=== PATIENT | female | born 1975 | race Caucasian/White ===

== ENCOUNTER 2022-11-13 20:54 | Inpatient (IN) | payer MEDICAID, OTHER ==
[2022-11-13] MEDS ORDERED: NICOTINE 21MG/24HR PATCH TRANSDERM STA (21:17)
--- NOTE | 2022-11-13 21:18 | ED ---
Psych HPI - General Chief Complaint: Psychiatric Symptoms Stated Complaint: Mental Health Time Seen by Provider: 11/13/22 20:57 Source: patient, RN notes reviewed Mode of arrival: ambulatory Limitations: no limitations - History of Present Illness Initial Comments: 47-year-old female presents emergency Department chief complaint of depression, suicidal ideation. Patient states that she's been having worsening thoughts. Patient states that she does not currently see psychiatry. Patient denies any current medications denies illicit drug use no alcohol abuse. Patient denies any nausea, vomiting diarrhea constipation patient currently homeless. Patient denies any other associated complaints. - Related Data Allergies Allergy/AdvReac Type Severity Reaction Status Date / Time No Known Allergies Allergy Verified 11/13/22 21:01 Review of Systems ROS Statement: Those systems with pertinent positive or pertinent negative responses have been documented in the HPI. ROS Other: All systems not noted in ROS Statement are negative. Past Medical History Past Medical History: No Reported History History of Any Multi-Drug Resistant Organisms: None Reported Past Surgical History: No Surgical Hx Reported Past Psychological History: No Psychological Hx Reported Smoking Status: Current every day smoker Past Alcohol Use History: Rare Past Drug Use History: Marijuana - Past Family History family Additional Family Medical History / Comment(s): denies CAD General Exam Limitations: no limitations General appearance: alert, in no apparent distress Head exam: Present: atraumatic, normocephalic, normal inspection Eye exam: Present: normal appearance, PERRL, EOMI. Absent: scleral icterus, conjunctival injection, periorbital swelling ENT exam: Present: normal exam, normal oropharynx, mucous membranes moist Neck exam: Present: normal inspection, full ROM. Absent: tenderness, meningismus, lymphadenopathy Respiratory exam: Present: normal lung sounds bilaterally. Absent: respiratory distress, wheezes, rales, rhonchi, stridor Cardiovascular Exam: Present: regular rate, normal rhythm, normal heart sounds. Absent: systolic murmur, diastolic murmur, rubs, gallop, clicks Neurological exam: Present: alert, oriented X3, CN II-XII intact Psychiatric exam: Present: depressed Skin exam: Present: warm, dry, intact, normal color. Absent: rash Course Vital Signs 11/13/22 11/13/22 11/14/22 20:57 22:01 02:00 Temperature 98.1 F Pulse Rate 111 H Respiratory 18 16 16 Rate Blood Pressure 138/95 O2 Sat by Pulse 97 Oximetry 11/14/22 04:46 Temperature Pulse Rate Respiratory 16 Rate Blood Pressure O2 Sat by Pulse Oximetry Medical Decision Making - Lab Data Lab Results 11/13/22 11/14/22 Range/Units 21: 02:18 Urine Opiates Screen Not Detected (NotDetected) Ur Oxycodone Screen Not Detected (NotDetected) Urine Methadone Screen Not Detected (NotDetected) Ur Propoxyphene Screen Not Detected (NotDetected) Ur Barbiturates Screen Not Detected (NotDetected) U Tricyclic Antidepress Not Detected (NotDetected) Ur Phencyclidine Scrn Not Detected (NotDetected) Ur Amphetamines Screen Not Detected (NotDetected) U Methamphetamines Scrn Not Detected (NotDetected) U Benzodiazepines Scrn Not Detected (NotDetected) Urine Cocaine Screen Not Detected (NotDetected) U Marijuana (THC) Screen Not Detected (NotDetected) Coronavirus (PCR) Not Detected (Not Detectd) Disposition Clinical Impression: Depression Disposition: ADMITTED IP TO THIS HOSP
[2022-11-13 22:47] LABS: Amphetamine Screen,Urine Not Detected (NotDetected); Barbiturate Screen,Urine Not Detected (NotDetected); Benzodiazepines Screen,Urine Not Detected (NotDetected); Cocaine Screen,Urine Not Detected (NotDetected); Methadone Screen, Urine Not Detected (NotDetected); Opiate Screen,Urine Not Detected (NotDetected); Phencyclidine Screen,Urine Not Detected (NotDetected); Tricyclic Antidepressant,Urine Not Detected (NotDetected); Urn Cannabinoid Scrn Not Detected (NotDetected)
[2022-11-13 22:48] LABS: Oxycodone Screen, Urine Not Detected (NotDetected)
[2022-11-14] MEDS ORDERED: MAGNESIUM HYDROXIDE 2,400 MG/10 ML CUP PO PRN (04:28)
[2022-11-14] MEDS ORDERED: MAG HYDROX/AL HYDROX/SIMETH 30 ML CUP PO PRN (04:28)
[2022-11-14] MEDS ORDERED: LORazepam 2 MG/ML INJ IM PRN (04:30)
[2022-11-14] MEDS ORDERED: LORazepam 1 MG TAB PO PRN (04:30)
[2022-11-14] MEDS ORDERED: HALOPERIDOL LACTATE 5 MG/ML 1 ML VIAL IM PRN (04:32)
[2022-11-14] MEDS ORDERED: traZODone HCL 50 MG TAB PO PRN (04:34)
[2022-11-14] MEDS ORDERED: haloperidoL 5 MG TAB PO PRN (04:43)
[2022-11-14] MEDS: NICOTINE 14MG/24HR PATCH TRANSDERM SCH ×2 (09:36→17:52)
[2022-11-14] MEDS: OLANZapine 5 MG TAB PO SCH ×4 (09:37→20:17)
[2022-11-14] MEDS: IBUPROFEN 400 MG TAB PO SCH ×3 (09:37→20:16)
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
--- NOTE | 2022-11-15 02:17 | P.PN ---
Progress Note - Text Progress Note Date: 11/14/22 patient could not be evaluated at this time due to being uncooperative
[2022-11-15] MEDS: IBUPROFEN 400 MG TAB PO SCH ×3 (09:09→19:48)
[2022-11-15] MEDS: NICOTINE 14MG/24HR PATCH TRANSDERM SCH (09:10)
[2022-11-15] MEDS: OLANZapine 5 MG TAB PO SCH ×3 (09:12→19:47)
[2022-11-15] MEDS: ACETAMINOPHEN TAB 325 MG TAB PO PRN ×3 (09:13→22:28)
--- NOTE | 2022-11-15 10:22 | PN ---
PROGRESS NOTE DATE OF SERVICE: 11/15/2022 CHIEF COMPLAINT: The patient stated that she was looking for a doctor, who would give her medications to put her to sleep where she would not wake up. INTERVAL HISTORY: The patient has been very oppositional to most things going on the unit yesterday. She was out on the unit. She was quite persistent and demands that she be discharged. Most of the time when she interacts with staff, she presents in a very distressed manner. It is noted that I have started Zyprexa and ordered 5 mg 3 times a day. The indication for Zyprexa is for physiologic stress response relating to her acute level of anxiety. When called to receive the medicine, she declined to take it. She stated yesterday the following to Nursing, "I am not going to start medications when I can't maintain them. I am sure you never have been at a place where you want to , but that is what I want. I wish I have never came here. I which I had a gun to kill myself." The patient apparently slept fair last night. Today, she has been up and continues the same. She says she has significant pain complaints. She was demanding that she receive her [id number] medicine that she had picked up at [employer]. She said that what she got at [employer] was "ibuprofen 200 mg per day." We did check the bottle that she brought in, which confirmed that. I discussed with the patient that we currently have her on ibuprofen 400 mg 3 times a day. She was very insistent on the idea that this medicine was not appropriate for her, but the medicine she brought in would be better. She was in a very high state of stress. I encouraged her to consider taking Zyprexa, which could help relax her and also reduce some of her pain. She continues to decline taking any psychotropic medications, and her only response is that she needs to be discharged. MENTAL STATUS EXAM: The patient was quite restless. She did not respond directly to most questions. Mostly, she was in an intense state demanding that she needed her medications that she brought in to help with pain. She said other than that she needs to be discharged, she had an intense manner. Her mood was depressed. She was significantly distressed. It was difficult to assess for thought disorder. She has continued to make references about the idea that she believes she needs to end her life and that she needs to do this urgently. She appears to be oriented to circumstances and surrounding. ASSESSMENT: I will continue the current diagnosis and treatment plan. We will initiate a petition for involuntary hospitalization based on her persistent threats to kill herself. She is not able to cooperate with any aspects of care. I continued to encourage her to consider taking Zyprexa at least while she is on the unit to see if she sees any benefit from that, though she declines. I will continue the order in place. I had made an effort yesterday to discuss with her what the process is that she was if she is a petition for involuntary hospitalization. The patient was not able to engage much in a conversation. I did not discuss it with her today as it only seems to add a fuel to her fire. We will focus on stabilization and discharge planning. OKSANA / TERI: [id number] /
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
[2022-11-16] MEDS: CLOTRIMAZOLE 1% CREAM 30 GM TUBE TOPICAL SCH ×2 (02:29→08:09)
[2022-11-16 06:36] VITALS: BP 145/84; PULSE 67; RESP 17; TEMP 98.7
[2022-11-16] MEDS: NICOTINE 14MG/24HR PATCH TRANSDERM SCH (08:09)
[2022-11-16] MEDS: IBUPROFEN 400 MG TAB PO SCH (08:10)
[2022-11-16] MEDS: OLANZapine 5 MG TAB PO SCH (08:10)
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
== END 2022-11-16 12:43 | disposition home or self-care (01) | DRG 881 ==
LOC: EC 20:54 → 3MHU 11-14 04:18
PROVIDERS: ADMIT Psychiatry & Neurology Psychiatry; ATTEND Psychiatry & Neurology Psychiatry
DX: F43.21 Adjustment disorder with depressed mood (principal); R45.851 Suicidal ideations; F17.200 Nicotine dependence, unspecified, uncomplicated; F41.9 Anxiety disorder, unspecified; Z59.02 Unsheltered homelessness
CPT/HCPCS: 80306; 82075; 87635; 99285

== ENCOUNTER 2022-11-17 04:31 | Inpatient (IN) | payer MEDICAID, OTHER ==
[2022-11-17] MEDS ORDERED: MAG HYDROX/AL HYDROX/SIMETH 30 ML CUP PO PRN (11:08)
[2022-11-17] MEDS ORDERED: haloperidoL 5 MG TAB PO PRN (11:12)
[2022-11-17] MEDS ORDERED: HALOPERIDOL LACTATE 5 MG/ML 1 ML VIAL IM PRN (11:13)
[2022-11-17] MEDS ORDERED: LORazepam 1 MG TAB PO PRN (11:13)
[2022-11-17] MEDS ORDERED: LORazepam 2 MG/ML INJ IM PRN (11:14)
--- NOTE | 2022-11-17 12:36 | ED ---
Psych HPI <Олег López - Last Filed: 11/17/22 12:52> - General Source: patient, police, RN notes reviewed Mode of arrival: ambulatory - History of Present Illness MD Complaint: suicidal ideation, feels depressed History of same: Yes If Self Harm: admits thoughts of self harm <Josselyn Gnozales - Last Filed: 11/17/22 16:25> - General Chief Complaint: Psychiatric Symptoms Stated Complaint: PETITION Time Seen by Provider: 11/17/22 05:59 - History of Present Illness Initial Comments: This is a 47-year-old female who presents to the emergency department for psychiatric evaluation. Patient was admitted to the psychiatric unit here on 11/14 through 11/16 (discharged yesterday). She was denoting suicidal thoughts on initial evaluation, which subsequently lead to that admission. She refused to take psychiatric medication on the unit, and told the psychiatrist before discharge yesterday that she had lied about suicidal ideations because she wanted to get out of the cold. The patient was brought in by police after being found walking through traffic. On discussion with the patient this morning, she states that she lied about feeling ready to go home because she wanted to leave here so she could end her life. Her plan was to jump out in front of a truck. She feels like people aren't treating her very nicely, which puts her in a very poor mental state, making her want to end her life. Denies any homicidal ideations or auditory/visual hallucinations. Denies any fevers, chills, sore throat, cough, dyspnea, chest pain, palpitations, abdominal pain, nausea, vomiting, diarrhea, back pain, or headaches. (Josselyn Gonzales) - Related Data Previous Rx's Medication Instructions Recorded Clotrimazole Cream [Lotrimin Cream] 1 applic TOPICAL BID #1 each 11/16/22 Ibuprofen [Motrin] 400 mg PO TID tab 11/16/22 Nicotine 14Mg/24Hr Patch [Habitrol] 1 patch TRANSDERM DAILY 14 Days 11/16/22 patch Allergies Allergy/AdvReac Type Severity Reaction Status Date / Time No Known Allergies Allergy Verified 11/17/22 14:14 Review of Systems ROS Other: All systems not noted in ROS Statement are negative. <Олег López - Last Filed: 11/17/22 12:52> ROS Other: All systems not noted in ROS Statement are negative. <Josselyn Gonzales - Last Filed: 11/17/22 16:25> ROS Statement: Those systems with pertinent positive or pertinent negative responses have been documented in the HPI. Past Medical History Past Medical History: No Reported History History of Any Multi-Drug Resistant Organisms: None Reported Past Surgical History: No Surgical Hx Reported Past Psychological History: No Psychological Hx Reported Smoking Status: Current every day smoker Past Alcohol Use History: Rare Past Drug Use History: Marijuana - Past Family History family Additional Family Medical History / Comment(s): denies CAD <Josselyn Gonzales - Last Filed: 11/17/22 16:25> General Exam General appearance: alert Head exam: Present: atraumatic, normocephalic, normal inspection Respiratory exam: Present: normal lung sounds bilaterally. Absent: respiratory distress, wheezes, rales, rhonchi, stridor Cardiovascular Exam: Present: regular rate, normal rhythm, normal heart sounds. Absent: systolic murmur, diastolic murmur, rubs, gallop, clicks Neurological exam: Present: alert, oriented X3, CN II-XII intact Psychiatric exam: Present: flat affect, suicidal ideation. Absent: homicidal ideation <Josselyn Gonzales - Last Filed: 11/17/22 16:25> Course Vital Signs 11/17/22 11/17/22 11/17/22 04:34 09:00 11:08 Temperature 97.5 F L 98.0 F 97.9 F Pulse Rate 88 69 Pulse Rate [ 88 Right Sitting] Respiratory 16 18 16 Rate Blood Pressure 156/98 134/77 Blood Pressure 144/89 [Right Arm Sitting] O2 Sat by Pulse 97 95 97 Oximetry 11/17/22 13:00 Temperature Pulse Rate 78 Pulse Rate [ Right Sitting] Respiratory 18 Rate Blood Pressure 130/76 Blood Pressure [Right Arm Sitting] O2 Sat by Pulse 97 Oximetry Medical Decision Making <Олег López - Last Filed: 11/17/22 12:52> <Josselyn Gonzales - Last Filed: 11/17/22 16:25> - Medical Decision Making I filled out a clinical certification for the patient's admission. (Олег López) This is a 47-year-old female who presents to the emergency department for psychiatric evaluation. Was pt. sent in by a medical professional or institution? @ -Sent in by police for walking in traffic. Did you speak to anyone other than the patient for history? @ -She was brought in by the police, however she had been here for a couple of hours by the time that I had arrived and at that point they were no longer here. I did obtain information from the police in written form and I was given information by the nursing staff who did speak with the police directly. Did you review nursing and triage notes? @ -Agree, accurate with regards to the patient's symptoms. Were old charts reviewed? @ -Yes, admission records from 11/14-11/16 Differential Diagnosis? @ -Differential diagnosis: - Depressive disorder, generalized anxiety disorder, bipolar disorder, schizoaffective disorder, antisocial personality disorder, borderline personality disorder, this is not meant to be an all-inclusive list. What testing was considered but not performed? (CT, X-rays, U/S, labs)? Why? @ None What meds were considered but not given? Why? @ -None Did you discuss the management of the patient with other professionals? @ -No Did you reconcile home meds? @ -No Was smoking cessation discussed for >3mins.? @ -No Was critical care preformed (if so, how long)? @ -No Were there social determinants of health that impacted care today? How? (Homelessness, low income, unemployed, alcoholism, drug addiction, transportation, low edu. Level, literacy, decrease access to med. care, group home, rehab)? @ -Yes, the patient is homeless, which does play a substantial role in her psychiatric history. Was there de-escalation of care discussed even if they declined? (Discuss DNR or withdrawal of care, Hospice)? @ -No What co-morbidities impacted this encounter? (DM, HTN, Smoking, COPD, CAD, Cancer, CVA, Hep., AIDS, mental health diagnosis, sleep apnea, morbid obesity)? @ -Previous psychiatric issues Was patient admitted / discharged? @ -On my initial evaluation of the patient, she was actively denoting suicidal ideations with a plan to throw herself in front of a truck. She had a BAT of 0 and EPS subsequently went to evaluate her. Due to the active suicidal ideations, patient does meet criteria for admission. She refuses to voluntarily signed herself in, and she was subsequently petitioned. Clinical certification filled out by ED attending, Dr. López. Patient moved to for inpatient management. Drug Therapy requiring intensive monitoring for toxicity (Heparin, Nitro, Insulin, Cardizem)? @ -None Were any procedures done? @ -None Diagnosis/symptom? @ -Suicidal ideations Acute, or Chronic, or Acute on Chronic? @ -Acute Uncomplicated (without systemic symptoms) or Complicated (systemic symptoms)? @ -uncomplicated Side effects of treatment? @ -Adverse reaction to medication or overall worsening of suicidal ideations Exacerbation, Progression, or Severe Exacerbation] @ -Not applicable Poses a threat to life or bodily function? @ -Yes, suicidal ideations do pose a threat to her life. (Josselyn Gonzales) Disposition <Олег López - Last Filed: 11/17/22 12:52> <Josselyn Gonzales - Last Filed: 11/17/22 16:25> Clinical Impression: Suicidal ideations Disposition: ADMITTED IP TO THIS HOSP
[2022-11-17] MEDS ORDERED: NICOTINE 14MG/24HR PATCH TRANSDERM ONE (13:00)
[2022-11-17 13:10] LABS: Amphetamine Screen,Urine Not Detected (NotDetected); Barbiturate Screen,Urine Not Detected (NotDetected); Benzodiazepines Screen,Urine Not Detected (NotDetected); Cocaine Screen,Urine Not Detected (NotDetected); Methadone Screen, Urine Not Detected (NotDetected); Opiate Screen,Urine Not Detected (NotDetected); Oxycodone Screen, Urine Not Detected (NotDetected); Phencyclidine Screen,Urine Not Detected (NotDetected); Tricyclic Antidepressant,Urine Not Detected (NotDetected); Urn Cannabinoid Scrn Not Detected (NotDetected)
[2022-11-17] MEDS: IBUPROFEN 400 MG TAB PO SCH ×2 (14:41→21:21)
--- NOTE | 2022-11-17 17:37 | P.MDCNMH ---
<Bib Garsia - Last Filed: 11/17/22 18:23> History of Present Illness H&P Date: 11/17/22 History of Presenting Illness: Patient is a pleasant 47-year-old female with a past medical history of blindness in left eye, nicotine dependence, and chronic lower back pain. She is currently admitted to inpatient mental health unit for suicidal ideations. We have been consulted for medical management throughout patient's hospitalization. Patient was seen and fully evaluated on mental health unit. Patient repeatedly stating she wants to . Patient reports when she is discharged she is going to step in front of a semi-truck and kill herself. Patient minimally cooperative with assessment and allowed physical examination, however answering only limited questions as she continued to repeat why does that matter I am going to kill myself. Patient does report having chronic lower back pain that radiates down into bilateral legs. She currently denies having any headache, lightheadedness, dizziness, chest pain, palpitations, shortness of breath, or any other complaints at this time. Review of systems: Pertinent positives and negatives as discussed in HPI, a complete review of systems was performed and all other systems are negative. Physical exam: Vital signs reviewed and stable. General: Nontoxic, no distress and appears stated age. Derm: Skin warm and dry, normal coloration for ethnicity. Head: Atraumatic, normocephalic and symmetric. Eyes: EOMs intact, no lid lag, and anicteric sclera. Patient appears to have cataract over left eye, patient reports blindness in left eye for years. Mouth: no lip lesions, mucus membranes moist. Poor dentition. Cardiovascular: regular rate and rhythm with normal S1S2, no murmur, positive posterior tibial pulses bilaterally, and cap refill < 2 seconds. Lungs: Respirations even, regular, and unlabored on room air. Lungs CTA bilatera lly, no rhonchi, no rales, no wheezing, and no accessory muscle usage. Abdominal: soft, nontender to palpation, no guarding, no appreciable organomegaly Ext: ROM intact. No gross muscle atrophy, no edema, no contractures. Varicose veins bilateral lower extremities. Neuro: Speech clear, face symmetrical and CN II-XII grossly intact with no noted focal neuro deficits Psych: Alert and oriented to person, place, time, and situation. Appropriate and pleasant affect. Assessment and Plan of Care: Chronic lower back pain -Symptomatic care and pain management with Tylenol and/or Motrin as needed. Blindness of left eye -It appears patient has a cataract and left eyes she denies ever being evaluated by an eye doctor in the past but reports blindness for years. -Recommend follow-up with forensic sergeant upon discharge. Nicotine dependence -Recommend smoking cessation. Nicotine patch. Suicidal ideations -Provide safe and supportive care. -Suicide precautions. -Management per primary admitting psychiatric team including medication management. Thank you for allowing us to participate in the care of this pleasant patient. Do not hesitate to contact us with questions. Someone can be reached from the [facility] hospitalist group all hours of the day at [phone] or via [employer]. Past Medical History Past Medical History: No Reported History History of Any Multi-Drug Resistant Organisms: None Reported Past Surgical History: No Surgical Hx Reported Past Anesthesia/Blood Transfusion Reactions: No Reported Reaction Past Psychological History: No Psychological Hx Reported Smoking Status: Current every day smoker Past Alcohol Use History: Rare Past Drug Use History: Marijuana - Past Family History family Additional Family Medical History / Comment(s): denies CAD Medications and Allergies Home Medications Medication Instructions Recorded Confirmed Type Clotrimazole Cream [Lotrimin Cream] 1 applic TOPICAL BID #1 each 11/16/22 11/17/22 Rx Ibuprofen [Motrin] 400 mg PO TID tab 11/16/22 11/17/22 Rx Nicotine 14Mg/24Hr Patch [Habitrol] 1 patch TRANSDERM DAILY 14 Days 11/16/22 11/17/22 Rx patch Allergies Allergy/AdvReac Type Severity Reaction Status Date / Time No Known Allergies Allergy Verified 11/17/22 14:14 Physical Exam Vitals: Vital Signs Temp Pulse Pulse Resp BP BP Pulse Ox 11/17/22 13:00 78 18 130/76 97 11/17/22 11:08 97.9 F 88 16 144/89 97 11/17/22 09:00 98.0 F 69 18 134/77 95 11/17/22 04:34 97.5 F L 88 16 156/98 97 Intake and Output 11/17/22 11/17/22 11/17/22 06:59 14:59 22:59 Other: Weight 99.79 kg 97.7 kg Cranial Nerve Examination - Cranial Nerves Cranial Nerve II- Optic: Impaired Cranial Nerve III- Oculomotor: Intact Cranial Nerve IV- Trochlear: Intact Cranial Nerve V- Trigeminal: Intact Cranial Nerve - Abducens: Intact Cranial Nerve VII- Facial: Intact Cranial Nerve VIII- Auditory: Intact Cranial Nerve IX- Glossopharyngeal: Intact Cranial Nerve X- Vagus: Intact Cranial Nerve XI- Accessory: Intact Cranial Nerve XII- Hypoglossal: Intact <Kristin Hodgson - Last Filed: 11/18/22 20:59> History of Present Illness Bib Garsia NP rendered care for this patient independently, reviewed the findings and plan as documented in the note above. I did not physically speak with or examine the patient on this date. Physical Exam Osteopathic Statement: *. No significant issues noted on an osteopathic structural exam other than those noted in the History and Physical/Consult.
[2022-11-17] MEDS: ACETAMINOPHEN TAB 325 MG TAB PO PRN (18:16)
[2022-11-17] MEDS: CLOTRIMAZOLE 1% CREAM 30 GM TUBE TOPICAL SCH (21:20)
[2022-11-18] MEDS: CLOTRIMAZOLE 1% CREAM 30 GM TUBE TOPICAL SCH ×2 (12:16→21:05)
[2022-11-18] MEDS: NICOTINE 14MG/24HR PATCH TRANSDERM SCH (12:16)
[2022-11-18] MEDS: IBUPROFEN 400 MG TAB PO SCH ×3 (12:17→21:05)
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
[2022-11-18] MEDS: risperiDONE 1 MG TAB PO SCH ×2 (13:15→21:05)
[2022-11-18] MEDS: ACETAMINOPHEN TAB 325 MG TAB PO PRN (19:35)
[2022-11-19] MEDS: NICOTINE 14MG/24HR PATCH TRANSDERM SCH (09:03)
[2022-11-19] MEDS: CLOTRIMAZOLE 1% CREAM 30 GM TUBE TOPICAL SCH ×2 (09:04→21:06)
[2022-11-19] MEDS: IBUPROFEN 400 MG TAB PO SCH ×3 (09:04→21:06)
[2022-11-19] MEDS: risperiDONE 1 MG TAB PO SCH ×2 (09:04→21:06)
[2022-11-19] MEDS: ACETAMINOPHEN TAB 325 MG TAB PO PRN (09:05)
--- NOTE | 2022-11-19 11:37 | P.PN ---
Progress Note - Text Progress Note Date: 11/19/22 Interval History: Patient was seen lying in her bed today and was directable and agreeable to sp eak with gag writer. Patient states that she is feeling tired today and was blaming the medications. She continues to be argumentative today however was mildly less bizarre than yesterday. She continues to focus on "going to do what I was trying to do" referring to a suicide attempt. She believes that gag writer is "messing up my life" and when asked more about this she states that going to the court process is "not necessary" and believes that it will effect a future job application. She continues to have very poor insight and judgment and poor reality testing. Continues to endorse depression at this time. At this time patient denies any suicidal or homical ideations, intent or plan. Patient denies any auditory, visual hallucinations and denies any paranoia or delusions. Mental Status Exam: General Appearance: Patient appears to be overweight, disheveled appearance, stated age is alert, argumentative. Patient appears to have poor hygiene and grooming. Behavior: Patient is seated without any agitated behavior. Argumentative. Speech: Patient's speech is fluent and nonpressured. [place] Mood/Affect: Patient reports their mood is depressed, affect is congruent and constricted. Suicidality/Homicidality: Patient denies having any homicidal ideation intent or plan. Denies any suicidal ideations intent or plan Perceptions: Patient denies any visual hallucinations and denies any auditory hallucinations Though content/process: Illogical thought process. Poor reality testing. Focused on discharge and suicide. Memory and concentration: AOX3, grossly intact for the purposes of this session. Judgment and insight: poor IMPRESSIONS: Psychosis unspecified, likely schizoaffective disorder Nicotine dependence Homelessness Plan: -Patient continues to meet criteria for inpatient psychiatric admission for symptom stabilization and safety. Patient has not signed adult voluntary form and medication consent and was placed in patient's chart. -Medications: change to invega 3 mg QHS for psychosis/mood stabilization. added zoloft 50 mg qhs for mood. We'll need to transition patient onto long-acting injection prior to discharge. -When necessary Ativan and Haldol for agitation/aggression. -NRT - nicotine patch -SW on board for discharge planning. Encouraged the patient to participate in milieu. Currently awaiting deferral with claim attorney and court date. patient will need CHRISTINE due to poor med compliance.
[2022-11-20] MEDS: NICOTINE 14MG/24HR PATCH TRANSDERM SCH (08:40)
[2022-11-20] MEDS: risperiDONE 1 MG TAB PO SCH ×2 (08:40→20:49)
[2022-11-20] MEDS: IBUPROFEN 400 MG TAB PO SCH ×3 (08:40→20:49)
[2022-11-20] MEDS: CLOTRIMAZOLE 1% CREAM 30 GM TUBE TOPICAL SCH ×2 (08:42→20:50)
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
[2022-11-20] MEDS: ACETAMINOPHEN TAB 325 MG TAB PO PRN ×2 (13:41→20:50)
[2022-11-21] MEDS: NICOTINE 14MG/24HR PATCH TRANSDERM SCH (08:49)
[2022-11-21] MEDS: ACETAMINOPHEN TAB 325 MG TAB PO PRN ×2 (08:49→18:50)
[2022-11-21] MEDS: CLOTRIMAZOLE 1% CREAM 30 GM TUBE TOPICAL SCH ×2 (08:50→21:10)
[2022-11-21] MEDS: risperiDONE 1 MG TAB PO SCH ×2 (08:51→21:10)
[2022-11-21] MEDS: IBUPROFEN 400 MG TAB PO SCH (08:51)
--- NOTE | 2022-11-21 11:30 | P.PN ---
Subjective Progress Note Date: 11/21/22 Principal diagnosis: IMPRESSIONS: Psychosis unspecified, likely schizoaffective disorder Nicotine dependence Homelessness Objective: Patient was seen lying in her bed today at 1120 in the morning during a group. However she got up and was willing come down to the office and talk with me. Her answer to everything is still, that she can just kill herself. When I asked her what she thought of the 2 sentences, #1 no matter what I'll just kill myself, # why don't you guys just let me out of here? And whether she thought that those 2 sentences fit with each other. She said, "I don't care if they fit with each other they're true I just want to kill myself and you should just let me out of here. I pointed out to her that those 2 sentences normally mean I want help but I don't want to be held responsible or do my part. She said, "well what ever." She did however ask for an increase in Motrin and addition of low-dose potassium which she takes at home and when she does it helps with nerve pain which she is complaining about. She can't seem to see that there is a problem with logic where 1 is saying help may not have aches and pains but why don't I just kill myself. Mental Status Exam: Pleasant with an artificial smile and reasonable eye contact General Appearance: Patient appears to be overweight, disheveled appearance, she appears to be her stated age, and she is alert. Patient appears to have better hygiene and grooming and today she did: And take care of her hair Behavior: Patient is seated without any agitated behavior. Speech: Patient's speech is fluent and nonpressured. She is quite intelligent with good abstract thought. 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 Mood/Affect: Patient reports her mood is depressed, affect is responsive although mostly depressed with decreased eye contact Suicidality/Homicidality: Patient denies having any homicidal ideation intent or plan. She says she has figured out how she can kill herself and that's her solution to everything Perceptions: Patient denies any visual hallucinations and denies any auditory hallucinations and I did not see any evidence that she was responding to voices. She says that the reason she does not like people getting close is because she has been hurt, but she denies paranoia Though content/process: Her thinking is logical but she just does not want to move on to what she can do. She keeps focusing on how life is full of shit, so why bother? Focused on discharge and suicide. If there is some problem with judgment is that if she really wanted get out and kill herself she would be telling us that she is fine. To think you can say I'll just kill myself and then be allowed out of the psychiatric hospital that show some poor judgment although it is a good way to get yourself a place to stay for a while. Memory and concentration: AOX3, grossly intact for the purposes of this session. Judgment and insight: Her view of life is not irrational, but it is just negative she says she has PTSD from the way she has been treated but denies any nightmares. She does not want to take more than one medicine because she assumes we will discharge her to the street she would not be able to keep track of them anyhow. Assessment: The patient wants help but then she knows will say that she will have to do her part so she wants help without having to do her part by saying that she has her solution what are we going to do about it? Plan: -Patient continues to meet criteria for inpatient psychiatric admission for symptom stabilization and safety. Patient has not signed adult voluntary form and medication consent and was placed in patient's chart. -Medications: change to invega 3 mg QHS for psychosis/mood stabilization. added zoloft 50 mg qhs for mood. We'll need to transition patient onto long-acting injection prior to discharge. -When necessary Ativan and Haldol for agitation/aggression. -NRT - nicotine patch -SW on board for discharge planning. Encouraged the patient to participate in milieu. Currently awaiting deferral with personal injury attorney and court date. patient will need CHRISTINE due to poor med compliance. Objective - Vital Signs Vital signs: Vital Signs Temp 97.7 F 11/20/22 06:40 Pulse 73 11/20/22 06:40 Resp 16 11/20/22 06:40 BP 132/90 11/20/22 06:40 Pulse Ox 97 11/20/22 06:40 FiO2
[2022-11-21] MEDS: POTASSIUM CITRATE 5 MEQ TABLET.ER PO SCH ×2 (13:30→18:49)
[2022-11-21] MEDS: IBUPROFEN 600 MG TAB PO SCH ×2 (15:57→21:10)
[2022-11-22] MEDS: POTASSIUM CITRATE 5 MEQ TABLET.ER PO SCH ×3 (08:47→19:01)
[2022-11-22] MEDS: IBUPROFEN 600 MG TAB PO SCH ×3 (08:48→21:29)
[2022-11-22] MEDS: NICOTINE 14MG/24HR PATCH TRANSDERM SCH (08:48)
[2022-11-22] MEDS: risperiDONE 1 MG TAB PO SCH (08:49)
[2022-11-22] MEDS: CLOTRIMAZOLE 1% CREAM 30 GM TUBE TOPICAL SCH ×2 (08:50→21:00)
--- NOTE | 2022-11-22 11:35 | P.PN ---
Progress Note - Text Progress Note Date: 11/22/22 Interval History: Patient was seen in the hallways earlier and then later on seen lying in her bed today and was directable and agreeable to speak with aligner typewriter. Patient states that she is feeling tired today. She claims that "nothing has changed" and claims that she still is persistent to be discharged. She claims that "I just want to end my life". She continues to have poor insight and judgment. Continues to endorse suicidal thoughts. He claims that her sleep is fair at nighttime. She continues to be hesitant about taking medications. He spoke more about the court process and she asked questions. She claims that "I decided about 2 or 3 weeks ago that I want to end my life". She claims that she is not willing to go to a [facility]p at this time because "what's the point". She continues to have very poor insight and judgment and poor reality testing. At this time patient denies any suicidal or homical ideations, intent or plan. Patient denies any auditory, visual hallucinations and denies any paranoia or delusions. Mental Status Exam: General Appearance: Patient appears to be overweight, disheveled appearance, stated age is alert, argumentative. Patient appears to have mildly improving hygiene and grooming. Behavior: Patient is seated without any agitated behavior. Argumentative. Speech: Patient's speech is fluent and nonpressured. [place] Mood/Affect: Patient reports their mood is depressed, affect is congruent and constricted. Suicidality/Homicidality: Patient denies having any homicidal ideation intent or plan. Endorses suicidal thoughts, no intent or plan. Perceptions: Patient denies any visual hallucinations and denies any auditory hallucinations Though content/process: Illogical thought process. Poor reality testing. Focused on discharge and suicide. Memory and concentration: AOX3, grossly intact for the purposes of this session. Judgment and insight: poor IMPRESSIONS: Psychosis unspecified, likely schizoaffective disorder Nicotine dependence Homelessness Plan: -Patient continues to meet criteria for inpatient psychiatric admission for s ymptom stabilization and safety. Patient has not signed adult voluntary form and medication consent and was placed in patient's chart. -Medications: increase risperdal PO 1 mg daily + 2 mg qhs for mood stabilization/psychosis. We'll need to transition patient onto long-acting injection prior to discharge. if patient is continuing not to improve then will consider Abilify. added cymbalta 30 mg bid for mood/anxiety. -When necessary Ativan and Haldol for agitation/aggression. -NRT - nicotine patch -SW on board for discharge planning. Encouraged the patient to participate in milieu. Currently awaiting deferral with traffic law attorney and court date. patient will need CHRISTINE due to poor med compliance. will look at [facility] referral.
[2022-11-22] MEDS: ACETAMINOPHEN TAB 325 MG TAB PO PRN (13:27)
[2022-11-22] MEDS: risperiDONE 2 MG TAB PO SCH (21:29)
[2022-11-22] MEDS: DULoxetine HCL 30 MG CAPSULE.DR PO SCH (21:29)
[2022-11-23] MEDS: POTASSIUM CITRATE 5 MEQ TABLET.ER PO SCH ×3 (08:50→18:07)
[2022-11-23] MEDS: DULoxetine HCL 30 MG CAPSULE.DR PO SCH ×2 (08:50→21:14)
[2022-11-23] MEDS: CLOTRIMAZOLE 1% CREAM 30 GM TUBE TOPICAL SCH ×2 (08:50→21:14)
[2022-11-23] MEDS: IBUPROFEN 600 MG TAB PO SCH ×3 (08:50→22:29)
[2022-11-23] MEDS: risperiDONE 1 MG TAB PO SCH (08:51)
[2022-11-23] MEDS: NICOTINE 14MG/24HR PATCH TRANSDERM SCH (08:51)
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
[2022-11-23] MEDS: ACETAMINOPHEN TAB 325 MG TAB PO PRN (19:48)
[2022-11-23] MEDS: risperiDONE 2 MG TAB PO SCH (21:14)
[2022-11-24] MEDS: POTASSIUM CITRATE 5 MEQ TABLET.ER PO SCH ×3 (08:27→17:29)
[2022-11-24] MEDS: CLOTRIMAZOLE 1% CREAM 30 GM TUBE TOPICAL SCH ×2 (08:27→21:27)
[2022-11-24] MEDS: IBUPROFEN 600 MG TAB PO SCH ×3 (08:30→21:25)
[2022-11-24] MEDS: risperiDONE 1 MG TAB PO SCH (08:31)
[2022-11-24] MEDS: NICOTINE 14MG/24HR PATCH TRANSDERM SCH (08:31)
[2022-11-24] MEDS: DULoxetine HCL 30 MG CAPSULE.DR PO SCH (08:31)
--- NOTE | 2022-11-24 10:46 | P.PN ---
Progress Note - Text Progress Note Date: 11/24/22 Interval History: Patient was seen lying in her bed today and was directable and agreeable to sp baldo with field underwriter. Patient continues to be argumentative about her medications. She states that she has not heard from the tax associate attorney at this time. We continue to speak about the court process and also she has several questions about the mental health code. She continues to state that "I just want to kill myself and end my life" however does not give a good reason as to why she thinks this way. She claims that "you can't stop me". She continues to be argumentative. She states that she is taking her medications at this time. She claims that she feels "a little bit better" with regard to her mood. Claims that she is able to sleep fairly last night about 5 hours. He is not going to groups. She continues to have very poor insight and judgment and poor reality testing. At this time patient denies any suicidal or homical ideations, intent or plan. Patient denies any auditory, visual hallucinations and denies any paranoia or delusions. Mental Status Exam: General Appearance: Patient appears to be overweight, improving appearance, stated age is alert, argumentative. Patient appears to have mildly improving hygiene and grooming. Behavior: Patient is seated without any agitated behavior. Argumentative. Speech: Patient's speech is fluent and nonpressured. [place] Mood/Affect: Patient reports their mood is depressed, improving mildly, affect is congruent and constricted. Suicidality/Homicidality: Patient denies having any homicidal ideation intent or plan. Endorses suicidal thoughts, plan to walk into traffic. Perceptions: Patient denies any visual hallucinations and denies any auditory hallucinations Though content/process: Illogical thought process. Poor reality testing. Focused on discharge and suicide. Memory and concentration: AOX3, grossly intact for the purposes of this session. Judgment and insight: poor IMPRESSIONS: Psychosis unspecified, likely schizoaffective disorder Nicotine dependence Homelessness Plan: -Patient continues to meet criteria for inpatient psychiatric admission for symptom stabilization and safety. Patient has not signed adult voluntary form and medication consent and was placed in patient's chart. -Medications: d/c risperdal at this time and switch to abilify PO 5 mg daily for mood stabilization/adjunct. We'll need to transition patient onto long-acting injection prior to discharge. increase cymbalta 60 mg qhs + 30 daily for mood/anxiety. -When necessary Ativan and Haldol for agitation/aggression. -NRT - nicotine patch -SW on board for discharge planning. Encouraged the patient to participate in milieu. Currently awaiting deferral and couirt date set for Dec 01. patient will need CHRISTINE due to poor med compliance. will look at snf referral for dispo once patient has improved psychiatrically and not endorsing SI.
[2022-11-24 12:18] LABS: Basophils % (A) 0 %; Eosinophils # (A) 0.1 k/uL (0-0.7); Eosinophils % (A) 2 %; HCT 36.1 % (34.0-46.0); HGB 11.9 gm/dL (11.4-16.0); Lymphocytes # (A) 1.4 k/uL (1.0-4.8); Lymphocytes % (A) 23 %; MCH 28.2 pg (25.0-35.0); MCHC 32.9 g/dL (31.0-37.0); MCV 85.8 fL (80.0-100.0); Mean Platelet Volume 8.1; Monocytes # (A) 0.5 k/uL (0-1.0); Monocytes % (A) 8 %; Neutrophils # (A) 3.7 k/uL (1.3-7.7); Neutrophils % (A) 63 %; Platelet Count 248 k/uL (150-450); RBC 4.21 m/uL (3.80-5.40); RDW 13.4 % (11.5-15.5); WBC 5.9 k/uL (3.8-10.6)
[2022-11-24 12:39] LABS: ALT 31 U/L (4-34); AST 22 U/L (14-36); African American GFR (CKD) >90 (>60 ml/min/1.73 sqM); Albumin 3.6 g/dL (3.5-5.0); Alkaline Phosphatase 90 U/L (38-126); Anion Gap 7 mmol/L; Blood Urea Nitrogen 18 mg/dL (7-17); Carbon Dioxide 24 mmol/L (22-30); Chloride 108 mmol/L (98-107); Glucose 95 mg/dL (74-99); Non-African American GFR(CKD) 90 (>60 ml/min/1.73 sqM); Potassium 4.5 mmol/L (3.5-5.1); Sodium 139 mmol/L (137-145); Total Bilirubin 0.4 mg/dL (0.2-1.3); Total Protein 6.3 g/dL (6.3-8.2)
[2022-11-24] MEDS: ACETAMINOPHEN TAB 325 MG TAB PO PRN ×2 (13:42→17:29)
[2022-11-24 19:18] LABS: Chol/HDL Ratio 4.68 Ratio; LDL Cholesterol,Calculated 87.6 mg/dL (0.0-131.0)
[2022-11-24] MEDS: DULoxetine HCL 60 MG CAPSULE.DR PO SCH (21:25)
[2022-11-25] MEDS: CLOTRIMAZOLE 1% CREAM 30 GM TUBE TOPICAL SCH ×2 (08:20→21:05)
[2022-11-25] MEDS: NICOTINE 14MG/24HR PATCH TRANSDERM SCH (08:20)
[2022-11-25] MEDS: IBUPROFEN 600 MG TAB PO SCH ×3 (08:21→21:05)
[2022-11-25] MEDS: ARIPiprazole 5 MG TAB PO SCH (08:21)
[2022-11-25] MEDS: POTASSIUM CITRATE 5 MEQ TABLET.ER PO SCH ×2 (08:22→19:54)
[2022-11-25] MEDS ORDERED: DULoxetine HCL 30 MG CAPSULE.DR PO SCH (09:00)
--- NOTE | 2022-11-25 11:42 | P.PN ---
Progress Note - Text Progress Note Date: 11/25/22 Interval History: Patient was seen lying in her bed today and was directable and agreeable to sp eak with senior copywriter. Patient continues to be somewhat argumentative with senior copywriter. She states that "I feel the same" and continues to be vague about her depression. She continues to state that she does have suicidal thoughts and claims that she is "hopeless". She continues to not be interested in speaking about shelters. Continues to have poor reality testing. She has been going to some groups lately and working on drawings. She claims that she spoke with the carpenter repair yesterday and signed the deferral. She has been taking her medications. Claims that she is able to sleep fairly last night about 5 hours. She continues to have very poor insight and judgment. At this time patient denies any homical ideations, intent or plan. Patient denies any auditory, visual hallucinations and denies any paranoia or delusions. Mental Status Exam: General Appearance: Patient appears to be overweight, improving appearance, stated age is alert, argumentative. Patient appears to have mildly improving hyg iene and grooming. Behavior: Patient is seated without any agitated behavior. Argumentative, improving mildly Speech: Patient's speech is fluent and nonpressured. [place] Mood/Affect: Patient reports their mood is depressed, improving mildly, affect is congruent and constricted. Suicidality/Homicidality: Patient denies having any homicidal ideation intent or plan. Endorses suicidal thoughts, plan to walk into traffic. Perceptions: Patient denies any visual hallucinations and denies any auditory hallucinations Though content/process: Illogical thought process. Poor reality testing. Focu sed on discharge and suicide. Memory and concentration: AOX3, grossly intact for the purposes of this session. Judgment and insight: poor IMPRESSIONS: Psychosis unspecified, likely schizoaffective disorder Nicotine dependence Homelessness Plan: -Patient continues to meet criteria for inpatient psychiatric admission for symptom stabilization and safety. Patient has not signed adult voluntary form and medication consent and was placed in patient's chart. -Medications: Continue abilify PO 5 mg daily for mood stabilization/adjunct. We'll need to transition patient onto long-acting injection prior to discharge. increase cymbalta 60 mg bid for mood/anxiety. -When necessary Ativan and Haldol for agitation/aggression. -NRT - nicotine patch -SW on board for discharge planning. Encouraged the patient to participate in milieu. Patient apparently signed deferral with her carpenter repair. patient will need CHRISTINE due to poor med compliance. will look at halfway referral for dispo once patient has improved psychiatrically and not endorsing SI.
[2022-11-25] MEDS: ACETAMINOPHEN TAB 325 MG TAB PO PRN ×2 (17:29→22:11)
[2022-11-25] MEDS: DULoxetine HCL 60 MG CAPSULE.DR PO SCH (21:05)
[2022-11-26] MEDS: IBUPROFEN 600 MG TAB PO SCH ×3 (08:59→21:27)
[2022-11-26] MEDS: ARIPiprazole 5 MG TAB PO SCH (08:59)
[2022-11-26] MEDS: DULoxetine HCL 60 MG CAPSULE.DR PO SCH ×2 (08:59→21:29)
[2022-11-26] MEDS: POTASSIUM CITRATE 5 MEQ TABLET.ER PO SCH ×2 (08:59→16:47)
[2022-11-26] MEDS: NICOTINE 14MG/24HR PATCH TRANSDERM SCH (09:00)
[2022-11-26] MEDS: CLOTRIMAZOLE 1% CREAM 30 GM TUBE TOPICAL SCH ×2 (09:01→21:39)
--- NOTE | 2022-11-26 11:55 | P.PN ---
Progress Note - Text Progress Note Date: 11/26/22 Interval History: Patient was seen lying in her bed today and was directable and agreeable to sp nickk with race and sports book writer. Patient continues to be argumentative with race and sports book writer about her medications. She continues to have an endorse hopelessness about her life and circumstances. She continues to state that "there is just no reason to live". She continues to have poor insight and judgment. We attempted to speak about residential and other options for housing and patient seemed skeptical about the different options and claims that she does not want to leave the [facility]. She claims that she spoke with [facility] who may give her more information about this. Claims that she is not interested in going to many groups. Has many isolating in her room continues to endorse depression and anxiety. Claims that she is sleeping fairly. She has been taking the medications. At this time patient denies any homical ideations, intent or plan. Patient denies any auditory, visual hallucinations and denies any paranoia or delusions. She continues to endorse suicidal thoughts with a plan to jump into traffic. Mental Status Exam: General Appearance: Patient appears to be overweight, improving appearance, stated age is alert, argumentative. Patient appears to have mildly improving hygiene and grooming. Behavior: Patient is seated without any agitated behavior. Argumentative, improving mildly Speech: Patient's speech is fluent and nonpressured. [place], improving mildly Mood/Affect: Patient reports their mood is depressed, improving mildly, affect is congruent Suicidality/Homicidality: Patient denies having any homicidal ideation intent or plan. Endorses suicidal thoughts, plan to walk into traffic. Perceptions: Patient denies any visual hallucinations and denies any auditory hallucinations Though content/process: Illogical thought process. Vague. Focused on discharge and suicide. Memory and concentration: AOX3, grossly intact for the purposes of this session. Judgment and insight: poor IMPRESSIONS: Psychosis unspecified, likely schizoaffective disorder Nicotine dependence Homelessness Plan: -Patient continues to meet criteria for inpatient psychiatric admission for symptom stabilization and safety. Patient has not signed adult voluntary form and medication consent and was placed in patient's chart. -Medications: Increase abilify PO 7.5 mg daily for mood stabilization/adjunct and increase again to 10 mg on tuesday. We'll need to transition patient onto long-acting injection prior to discharge. cymbalta 60 mg bid for mood/anxiety. -When necessary Ativan and Haldol for agitation/aggression. -NRT - nicotine patch -SW on board for discharge planning. Encouraged the patient to participate in milieu. Patient apparently signed deferral with her corporate associate attorney. patient will need CHRISTINE due to poor med compliance. will look at residential referral for dispo once patient has improved psychiatrically and not endorsing SI.
[2022-11-26] MEDS: ACETAMINOPHEN TAB 325 MG TAB PO PRN (11:57)
[2022-11-27] MEDS: DULoxetine HCL 60 MG CAPSULE.DR PO SCH ×2 (08:38→21:25)
[2022-11-27] MEDS: NICOTINE 14MG/24HR PATCH TRANSDERM SCH (08:38)
[2022-11-27] MEDS: POTASSIUM CITRATE 5 MEQ TABLET.ER PO SCH ×2 (08:40→21:24)
[2022-11-27] MEDS: IBUPROFEN 600 MG TAB PO SCH ×3 (08:40→21:24)
[2022-11-27] MEDS: CLOTRIMAZOLE 1% CREAM 30 GM TUBE TOPICAL SCH ×2 (08:40→21:25)
[2022-11-27] MEDS ORDERED: ARIPiprazole 5 MG TAB PO SCH (09:00)
[2022-11-27] MEDS: ACETAMINOPHEN TAB 325 MG TAB PO PRN ×3 (13:23→23:41)
--- NOTE | 2022-11-27 19:02 | P.PN ---
Progress Note - Text Progress Note Date: 11/27/22 Interval history: Patient was seen in her room resting and was directable and agreeable to speak with junior copywriter. She reports her mood is agitated and tired. He reports frustration with her current roommate, this mental room, roommate eating chips at 4 that disrupts her sleep. At this time, patient denies any suicidal or homicidal ideation, intent or plan. Denies any auditory or visual hallucinations. Patient denies any side effects from the medications and has been compliant with meds. She is hoping for discharge on Tuesday. Mental status exam: General Appearance: Patient appears to be stated age, dressed in casual attire, fair hygiene. Behavior: No agitated behavior. Patient is directable, attempts to cooperate. Speech: Patient's speech is fluent and non-pressured. Mood/Affect: Mood is "agitated", affect is congruent and constricted. Suicidality/Homicidality: Patient denies having any suicidal or homicidal ideation intent or plan. Perceptions: Patient denies any auditory or visual hallucinations. Though content/process: There is no evidence of any delusional thought content and thought process is linear and goal-directed. Memory and concentration: AOX3, grossly intact for the purposes of this session Judgment and insight: improving mildly Assessment/Plan: Continue with current diagnosis. Patient continues to meet criteria for inpatient psychiatric admission for symptom stabilization and safety. Increase Abilify to 10 mg daily for mood stabilization starting tomorrow. Monitor for medication compliance and for any psychotropic medication side effects. Will continue to monitor ongoing response to treatment. Encouraged participation in milieu.
[2022-11-28 07:21] LABS: African American GFR (CKD) >90 (>60 ml/min/1.73 sqM); Anion Gap 7 mmol/L; Blood Urea Nitrogen 19 mg/dL (7-17); Calcium 9.1 mg/dL (8.4-10.2); Carbon Dioxide 25 mmol/L (22-30); Chloride 106 mmol/L (98-107); Glucose 88 mg/dL (74-99); Non-African American GFR(CKD) 84 (>60 ml/min/1.73 sqM); Potassium 4.6 mmol/L (3.5-5.1); Sodium 138 mmol/L (137-145)
[2022-11-28] MEDS: IBUPROFEN 600 MG TAB PO SCH ×3 (09:10→20:42)
[2022-11-28] MEDS: ARIPiprazole 10 MG TAB PO SCH (09:10)
[2022-11-28] MEDS: DULoxetine HCL 60 MG CAPSULE.DR PO SCH ×2 (09:11→20:43)
[2022-11-28] MEDS: NICOTINE 14MG/24HR PATCH TRANSDERM SCH (09:12)
[2022-11-28] MEDS: ACETAMINOPHEN TAB 325 MG TAB PO PRN ×2 (09:14→23:19)
[2022-11-28] MEDS: POTASSIUM CITRATE 5 MEQ TABLET.ER PO SCH ×2 (11:21→18:03)
[2022-11-28] MEDS: CLOTRIMAZOLE 1% CREAM 30 GM TUBE TOPICAL SCH ×2 (11:22→20:43)
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
[2022-11-28 23:22] VITALS: RESP 16; TEMP 98
[2022-11-29] MEDS: NICOTINE 14MG/24HR PATCH TRANSDERM SCH (08:26)
[2022-11-29] MEDS: IBUPROFEN 600 MG TAB PO SCH (08:26)
[2022-11-29] MEDS: DULoxetine HCL 60 MG CAPSULE.DR PO SCH (08:26)
[2022-11-29] MEDS: ARIPiprazole 10 MG TAB PO SCH (08:26)
[2022-11-29] MEDS: CLOTRIMAZOLE 1% CREAM 30 GM TUBE TOPICAL SCH (08:30)
[2022-11-29] MEDS: POTASSIUM CITRATE 5 MEQ TABLET.ER PO SCH (08:30)
[2022-11-29] MEDS ORDERED: ARIPiprazole 10 MG TAB PO SCH (09:00)
[2022-11-29] MEDS ORDERED: DULoxetine HCL 60 MG CAPSULE.DR PO ONE (10:58)
--- NOTE | 2022-11-29 12:14 | P.DS ---
Providers Date of admission: 11/17/22 11:00 Expected date of discharge: 11/29/22 Attending physician: Jeferson Blandon MD Consults: 11/17/22 11:08 Consult Physician Routine Consulting Provider: Abbi Kirk Consult Reason/Comments: history and physical Do you want consulting provider notified?: Yes Primary care physician: Stated None - Discharge Diagnosis(es) (1) Unspecified psychosis Current Visit: Yes Status: Acute Priority: High (2) Nicotine dependence Current Visit: Yes Status: Acute Priority: Low (3) Homelessness Current Visit: Yes Status: Acute Priority: Medium Hospital Course: Admission HPI: Admission note was completed by screenplay writer "Patient is a 47-year-old female, currently homeless, was recently discharged 2 days ago from the mental health unit and brought back on petition by police. Patient presented to the hospital yesterday and was petition by police. According to petition states that "Nancy was walking down [address] and told me she is trying to get hit by a car/truck and wants to ". Patient was just discharged from the mental health unit 2 days ago and was treated for homelessness and adjustment disorder with depressed mood. Patient at that time had very poor insight and judgment and states that she lied to get into the hospital". She was discharged as she was refusing medications and wanted to be back on the streets and was not interested in taking medications or getting treatment. Patient was seen today laying in her bed and agreeable street to screenplay writer. Patient continues to demonstrate poor reality testing, poor insight and judgment and poor frustration tolerance. She is impulsive. When screenplay writer asked her about why she came back to the hospital she stated that "I was trying to get hit by a truck and ". She claims that she lied to screenplay writer about feeling safe to be discharged and not having suicidal thoughts and states that as soon as she left the hospital she went to try to get hit by a truck. She claims that she wants to be discharged so that she can leave and try to find a way to kill herself. She has illogical, bizarre thinking and was argumentative and irritable. She denies any change sin her sleep or appetite at this time. Things that she does not want to be started on medications and wants to leave the hospital. Patient denies to endorse suicidal thoughts. No homicidal ideations intent or plan. At this time patient denies any auditory or visual hallucinations. Patient denies any flight of id eas racing thoughts and increased in goal directed behavior. Patient admits to using nicotine products" Hospital course: Upon admission to the unit patient was admitted involuntarily on a petition and certificate and a second certificate was completed and faxed with the courts. Patient ended up signing a deferral with the insurance defense attorney and agreeing to treatment. Patient initially mainly isolated in her room however with treatment and time patient eventually got along well with other patients on the unit and followed unit protocol. Patient was compliant with the medications and denied any side e ffects throughout hospital course. Patient was started on Risperdal however due to the sedation effect patient wanted to be switched on to another medication. Patient was started on Cymbalta and increase to a dose of 120 mg daily for mood/anxiety. Patient was also started on Abilify and increased the dose of 10 mg daily for psychosis/mood stabilization/adjunct. Patient was offered long- acting injection however she declined this. Patient spoke of her stressors and engaged in therapy both group and individual. Patient was also seen by medical team for history and physical exam. Throughout the course of the hospitalization patient gradually improved with regards to mood, anxiety, psychosis, suicidal thoughts, sleep and became more future oriented with improved insight and judgment. On the day of discharge patient denied any suicidal or homicidal ideations intent or plan denied any auditory or visual hallucinations. Patient endorsed wanting to live for to get housing and also for her health and to find a job. The patient denied any access to guns or weapons. Patient denied any paranoia and did not endorse any delusions. Patient does not have a significant history of substance abuse and was counseled on abstaining from all substances including alcohol and marijuana. Patient was also counseled on the medications and need for regular compliance and was encouraged to follow-up with their outpatient appointment for mental health and also for primary care. Patient was offered several times to be referred to a halfway however patient states that she does not want to leave the county and would rather be homeless here as she was previously. Mental status exam: General Appearance: Patient appears to be overweight, stated age is alert, pleasant, and cooperative. Patient is in no acute distress and has improved hygiene and grooming Behavior: Patient is calmly seated without any agitated behavior. Speech: Patient's speech is fluent and nonpressured. Mood/Affect: Patient reports their mood is "better", affect is congruent Suicidality/Homicidality: Patient denies having any suicidal or homicidal ideation intent or plan. Perceptions: Patient denies any auditory or visual hallucinations. Though content/process: There is no evidence of any delusional thought content and thought process is linear and goal-directed. more future oriented Memory and concentration: AOX3, grossly intact for the purposes of this session. Can spell "WORLD" backwards correctly. Judgment and insight: chronically poor, however has improved with guarded prognosis Impression: Psychosis unspecified, likely schizoaffective disorder Homelessness Nicotine dependence Plan: -Continue with discharge today as patient has improved and stabilized psychiatrically and is not currently an imminent threat to herself and/or others. Patient will remain at chronically elevated risk for harm to self and/or others due to her impulsivity. -Continue medications: Abilify 10 mg daily for psychosis/mood stabilization/adjunct, Cymbalta 120 mg daily for mood/anxiety. -Patient was counseled on the need for medication compliance and appropriate follow-up at mental health and also primary care for medical issues. Patient verbalized understanding and agreed. -Social work to give patient referral and resources for halfway and also bus tickets if needed. Social work also to arrange for patients follow up appointments with [facility] for psychiatric care along with follow up with primary care provider. -Patient counseled on abstaining from recreational drugs and marijuana and alcohol. Was informed/educated on the adverse effects on their physical and mental health. Patient verbally agreed and understood. -Patient was instructed to return to the hospital or seek immediate medical care if their psychiatric or medical symptoms do worsen or reoccur. Allergies Allergy/AdvReac Type Severity Reaction Status Date / Time No Known Allergies Allergy Verified 11/17/22 14:14 Laboratory Results WBC 5.9 k/uL (3.8-10.6) 11/24/22 11:22 RBC 4.21 m/uL (3.80-5.40) 11/24/22 11:22 Hgb 11.9 gm/dL (11.4-16.0) 11/24/22 11:22 Hct 36.1 % (34.0-46.0) 11/24/22 11:22 MCV 85.8 fL (80.0-100.0) 11/24/22 11:22 MCH 28.2 pg (25.0-35.0) 11/24/22 11:22 MCHC 32.9 g/dL (31.0-37.0) 11/24/22 11:22 RDW 13.4 % (11.5-15.5) 11/24/22 11:22 Plt Count 248 k/uL (150-450) 11/24/22 11:22 MPV 8.1 11/24/22 11:22 Neutrophils % 63 % 11/24/22 11:22 Lymphocytes % 23 % 11/24/22 11:22 Monocytes % 8 % 11/24/22 11:22 Eosinophils % 2 % 11/24/22 11:22 Basophils % 0 % 11/24/22 11:22 Neutrophils # 3.7 k/uL (1.3-7.7) 11/24/22 11:22 Lymphocytes # 1.4 k/uL (1.0-4.8) 11/24/22 11:22 Monocytes # 0.5 k/uL (0-1.0) 11/24/22 11:22 Eosinophils # 0.1 k/uL (0-0.7) 11/24/22 11:22 Basophils # 0.0 k/uL (0-0.2) 11/24/22 11:22 Sodium 138 mmol/L (137-145) 11/28/22 06:51 Potassium 4.6 mmol/L (3.5-5.1) 11/28/22 06:51 Chloride 106 mmol/L (98-107) 11/28/22 06:51 Carbon Dioxide 25 mmol/L (22-30) 11/28/22 06:51 Anion Gap 7 mmol/L 11/28/22 06:51 BUN 19 mg/dL (7-17) H 11/28/22 06:51 Creatinine 0.83 mg/dL (0.52-1.04) 11/28/22 06:51 Est GFR (CKD-EPI)AfAm >90 (>60 ml/min/1.73 sqM) 11/28/22 06:51 Est GFR (CKD-EPI)NonAf 84 (>60 ml/min/1.73 sqM) 11/28/22 06:51 Glucose 88 mg/dL (74-99) 11/28/22 06:[address] Glu mg/dL 100 11/24/22 11:22 Hemoglobin A1c 5.1 % (0.0-6.0) 11/24/22 11:22 Calcium 9.1 mg/dL (8.4-10.2) 11/28/22 06:51 Total Bilirubin 0.4 mg/dL (0.2-1.3) 11/24/22 11:22 AST 22 U/L (14-36) 11/24/22 11:22 ALT 31 U/L (4-34) 11/24/22 11:22 Alkaline Phosphatase 90 U/L (38-126) 11/24/22 11:22 Total Protein 6.3 g/dL (6.3-8.2) 11/24/22 11:22 Albumin 3.6 g/dL (3.5-5.0) 11/24/22 11:22 Triglycerides 242.00 mg/dL (0.00-149.00) H 11/24/22 11:22 Cholesterol 173.00 mg/dL (0.00-200.00) 11/24/22 11:22 LDL Cholesterol, Calc 87.6 mg/dL (0.0-131.0) 11/24/22 11:22 VLDL Cholesterol, Calc 48.40 mg/dL (5.00-40.00) H 11/24/22 11:22 HDL Cholesterol 37.00 mg/dL (40.00-60.00) L 11/24/22 11:22 Cholesterol/HDL Ratio 4.68 Ratio 11/24/22 11:22 TSH 2.470 mIU/L (0.465-4.680) 11/24/22 11:22 Urine Opiates Screen Not Detected (NotDetected) 11/17/22 11:32 Ur Oxycodone Screen Not Detected (NotDetected) 11/17/22 11:32 Urine Methadone Screen Not Detected (NotDetected) 11/17/22 11:32 Ur Propoxyphene Screen Not Detected (NotDetected) 11/17/22 11:32 Ur Barbiturates Screen Not Detected (NotDetected) 11/17/22 11:32 U Tricyclic Antidepress Not Detected (NotDetected) 11/17/22 11:32 Ur Phencyclidine Scrn Not Detected (NotDetected) 11/17/22 11:32 Ur Amphetamines Screen Not Detected (NotDetected) 11/17/22 11:32 U Methamphetamines Scrn Not Detected (NotDetected) 11/17/22 11:32 U Benzodiazepines Scrn Not Detected (NotDetected) 11/17/22 11:32 Urine Cocaine Screen Not Detected (NotDetected) 11/17/22 11:32 U Marijuana (THC) Screen Not Detected (NotDetected) 11/17/22 11:32 Coronavirus (PCR) Not Detected (Not Detectd) 11/17/22 11:21 Vital Signs Temp 98.0 F 11/28/22 23:21 Pulse 88 11/29/22 09:08 Resp 16 11/28/22 23:21 BP 157/102 11/29/22 09:08 Pulse Ox 98 11/28/22 23:21 FiO2 Intake & Output 11/28/22 11/29/22 11/29/22 18:59 06:59 18:59 Weight 103.9 kg Patient Condition at Discharge: Stable Plan - Discharge Summary New Discharge Prescriptions: New Potassium Citrate [Urocit-K ER] 5 meq PO PC-BID 14 Days tab ARIPiprazole [Abilify] 10 mg PO DAILY 30 Days tab DULoxetine HCL [Cymbalta] 120 mg PO DAILY 30 Days cap Continue Ibuprofen [Motrin] 400 mg PO TID tab Nicotine 14Mg/24Hr Patch [Habitrol] 1 patch TRANSDERM DAILY 14 Days patch Clotrimazole Cream [Lotrimin Cream] 1 applic TOPICAL BID #1 each Discharge Medication List Ibuprofen [Motrin] 400 mg PO TID tab 11/16/22 [Rx] ARIPiprazole [Abilify] 10 mg PO DAILY 30 Days tab 11/29/22 [Rx] Clotrimazole Cream [Lotrimin Cream] 1 applic TOPICAL BID #1 each 11/29/22 [Rx] DULoxetine HCL [Cymbalta] 120 mg PO DAILY 30 Days cap 11/29/22 [Rx] Nicotine 14Mg/24Hr Patch [Habitrol] 1 patch TRANSDERM DAILY 14 Days patch 11/29/22 [Rx] Potassium Citrate [Urocit-K ER] 5 meq PO PC-BID 14 Days tab 11/29/22 [Rx] Follow up Appointment(s)/Referral(s): [facility] [Outside] - 11/29/22 11:00 am (intake on unit) [facility] - [facility] Week Patient Instructions/Handouts: How to Stop Smoking (DC), Depression (DC) Activity/Diet/Wound Care/Special Instructions: Avoid the use of street drugs and alcohol. Take all prescriptions as prescribed. When you are in need of refills on your medications, please contact your medical provider and/or outpatient psychiatrist to have this done. Please go to scheduled outpatient appointment for aftercare treatment. If symptoms return or become worse, call the crisis line at and/or go to the nearest emergency room for evaluation Discharge Disposition: OTHER INSTITUTION NOT DEFINED
[2022-11-29 12:45] VITALS: BP 178/85; PULSE 85
== END 2022-11-29 13:48 | disposition home or self-care (01) | DRG 885 ==
LOC: EC 04:31 → 3MHU 11:00
PROVIDERS: ADMIT Psychiatry & Neurology Psychiatry; ATTEND Psychiatry & Neurology Psychiatry
DX: F25.9 Schizoaffective disorder, unspecified (principal); R45.851 Suicidal ideations; Z71.6 Tobacco abuse counseling; F17.210 Nicotine dependence, cigarettes, uncomplicated; F41.9 Anxiety disorder, unspecified; Z59.00 Homelessness unspecified; G89.29 Other chronic pain; M54.50 Low back pain, unspecified; H54.62 Unqualified visual loss, left eye, normal vision right eye; Z20.822 Contact with and (suspected) exposure to COVID-19; Z28.310 Unvaccinated for COVID-19; Z28.21 Immunization not carried out because of patient refusal
CPT/HCPCS: 80048; 80053; 80061; 80306; 82075; 83036; 84443; 85025; 87635

== ENCOUNTER 2023-02-05 00:47 | Inpatient (IN) | payer MEDICAID, OTHER ==
--- NOTE | 2023-02-05 01:23 | ED ---
General Adult HPI - General Chief complaint: Psychiatric Symptoms Stated complaint: petition Time Seen by Provider: 02/05/23 01:06 Source: patient Mode of arrival: ambulatory Limitations: no limitations - History of Present Illness Initial comments: Dictation was produced using [employer] dictation software. please excuse any grammatical, word or spelling errors. Chief Complaint: 47-year-old female presents emergency Department with chronic suicidal ideation History of Present Illness: This is a 47-year-old female she states she feels suicidal. She's been suicidal for years. She's been admitted to psych in the past. Denies any homicidal ideation. No medical complaints. Denies any visual or auditory hallucinations. The ROS documented in this emergency department record has been reviewed and confirmed by me. Those systems with pertinent positive or negative responses have been documented in the HPI. All other systems are other negative and/or noncontributory. PHYSICAL EXAM: General Impression: Alert and oriented x3, not in acute distress, disheveled HEENT: Normocephalic atraumatic, extra-ocular movements intact, pupils equal and reactive to light bilaterally, mucous membranes moist. Chest: Able to complete full sentences, no retractions, no tachypnea Musculoskeletal: , no peripheral edema Motor: no focal deficits noted Neurological: CN II-XII grossly intact, no focal motor or sensory deficits noted Skin: Intact with no visualized rashes Psych: Normal affect and mood ED course: 47-year-old female presents emergency department for chronic suicidal ideation. Vital signs are stable. Physical exam is unremarkable. Patient medically cleared for EPS evaluation. Nursing notes and chart review was perfor med Was pt. sent in by a medical professional or institution ( PA, TAIL EDGER, urgent care, hospital, or retirement...) When possible be specific @ -No Did you speak to anyone other than the patient for history (EMS, parent, family, police, friend...)? What history was obtained from this source @ -No Did you review nursing and triage notes (agree or disagree)? Why? @ -I reviewed and agree with nursing and triage notes Were old charts reviewed (outside hosp., previous admission, EMS record, old EKG, old radiological studies, urgent care reports/EKG's, retirement records)? Report findings @ -No old charts were reviewed Differential Diagnosis (chest pain, altered mental status, abdominal pain women, abdominal pain men, vaginal bleeding, musculoskeletal, weakness, fever, dyspnea, syncope, headache, dizziness, GI bleed, back pain, seizure, CVA, palpatations, mental health)? @ -Differential Mental Health: Depression, anxiety, bipolar, psychosis, schizophrenia, borderline personality, situational depression, adjustment disorder, behavioral disorder, brain tumor, malingering, substance abuse, encephalopathy, medication reaction, dementia, hypothyroidism, degenerative neurologic disorder, lupus.... This is not meant to be all-inclusive list EKG interpreted by me (3pts min.). @ -None done X-rays interpreted by me (1pt min.). @ -None done CT interpreted by me (1pt min.). @ -None done U/S interpreted by me (1pt. min.). @ -None done What testing was considered but not performed or refused? (CT, X-rays, U/S, labs)? Why? @ -None What meds were considered but not given or refused? Why? @ -None Did you discuss the management of the patient with other professionals (professionals i.e. , PA, TAIL EDGER, lab, RT, psych nurse, clinical social worker, commercial litigation attorney, teacher, ict help desk officer, family service caseworker)? Give summary @ -No Was smoking cessation discussed for >3mins.? @ -No Was critical care preformed (if so, how long)? @ -No Were there social determinants of health that impacted care today? How? (Homelessness, low income, unemployed, alcoholism, drug addiction, transportation, low edu. Level, literacy, decrease access to med. care, nursing home, rehab)? @ -No Was there de-escalation of care discussed even if they declined (Discuss DNR or withdrawal of care, Hospice)? DNR status @ -No What co-morbidities impacted this encounter? (DM, HTN, Smoking, COPD, CAD, Cancer, CVA, ARF, Chemo, Hep., AIDS, mental health diagnosis, sleep apnea, morbid obesity)? @ -None Was patient admitted / discharged? Hospital course, mention meds given and route , prescriptions, significant lab abnormalities, going to OR and other pertinent info. @ -47-year-old female with suicidal ideation presents to the ER. Evaluated by emergency psych services and will be admitted to inpatient psychiatric unit. Undiagnosed new problem with uncertain prognosis? @ -No Drug Therapy requiring intensive monitoring for toxicity (Heparin, Nitro, Insulin, Cardizem)? @ -No Were any procedures done? @ -No Diagnosis/symptom? Acute, or Chronic, or Acute on Chronic? Uncomplicated (without systemic symptoms) or Complicated (systemic symptoms)? @ -1. Suicidal ideation Side effects of treatment? @ -No Exacerbation, Progression, or Severe Exacerbation? @ -No Poses a threat to life or bodily function? How? (Chest pain, [place], [place], pneumonia, PE, COPD, DKA, ARF, appy, cholecystitis, CVA, Diverticulitis, Homicidal, Suicidal, threat to staff... and all critical care pts) @ -Yes - Related Data Previous Rx's Medication Instructions Recorded ARIPiprazole [Abilify] 5 mg PO DAILY #30 tab 01/07/23 DULoxetine HCL [Cymbalta] 60 mg PO BID #60 cap 01/07/23 Famotidine [Pepcid] 20 mg PO BID #60 tab 01/07/23 Charlo Carbonate ER [Lithobid] 450 mg PO HS #30 tab 01/07/23 hydroCHLOROthiazide [Hydrodiuril] 25 mg PO DAILY #30 tab 01/07/23 Allergies Allergy/AdvReac Type Severity Reaction Status Date / Time No Known Allergies Allergy Verified 02/05/23 01:02 Review of Systems ROS Statement: Those systems with pertinent positive or pertinent negative responses have been documented in the HPI. ROS Other: All systems not noted in ROS Statement are negative. Past Medical History Past Medical History: No Reported History History of Any Multi-Drug Resistant Organisms: None Reported Past Surgical History: No Surgical Hx Reported Past Anesthesia/Blood Transfusion Reactions: No Reported Reaction Past Psychological History: No Psychological Hx Reported Smoking Status: Current every day smoker Past Alcohol Use History: Rare Past Drug Use History: Marijuana - Past Family History family Additional Family Medical History / Comment(s): denies CAD General Exam Limitations: no limitations Course Vital Signs 02/05/23 01:02 Temperature 98.4 F Pulse Rate 92 Respiratory 18 Rate Blood Pressure 159/96 O2 Sat by Pulse 98 Oximetry Disposition Clinical Impression: Suicidal ideation Disposition: ADMITTED IP TO THIS [facility] Condition: Fair Referrals: None,Stated [Primary Care Provider] - 1-2 days
[2023-02-05 04:33] LABS: Amphetamine Screen,Urine Not Detected (NotDetected); Barbiturate Screen,Urine Not Detected (NotDetected); Benzodiazepines Screen,Urine Not Detected (NotDetected); Cocaine Screen,Urine Not Detected (NotDetected); Methadone Screen, Urine Not Detected (NotDetected); Opiate Screen,Urine Not Detected (NotDetected); Oxycodone Screen, Urine Not Detected (NotDetected); Phencyclidine Screen,Urine Not Detected (NotDetected); Tricyclic Antidepressant,Urine Not Detected (NotDetected); Urn Cannabinoid Scrn Not Detected (NotDetected)
[2023-02-05] MEDS ORDERED: MAGNESIUM HYDROXIDE 2,400 MG/10 ML CUP PO PRN (05:17)
[2023-02-05] MEDS ORDERED: MAG HYDROX/AL HYDROX/SIMETH 30 ML CUP PO PRN (05:17)
[2023-02-05] MEDS ORDERED: HALOPERIDOL LACTATE 5 MG/ML 1 ML VIAL IM PRN (05:20)
[2023-02-05] MEDS ORDERED: haloperidoL 5 MG TAB PO PRN (05:21)
[2023-02-05] MEDS ORDERED: hydrOXYzine pamoate 25 MG CAP PO PRN (05:22)
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
[2023-02-05] MEDS: NICOTINE 14MG/24HR PATCH TRANSDERM SCH (14:38)
[2023-02-05] MEDS: ACETAMINOPHEN TAB 325 MG TAB PO PRN ×2 (14:40→21:12)
[2023-02-05] MEDS: DULoxetine HCL 30 MG CAPSULE.DR PO SCH (21:09)
--- NOTE | 2023-02-06 01:01 | P.CONS ---
History of Present Illness - Reason for Consult Consult date: 02/05/23 - History of Present Illness The patient is a 47-year-old female currently experiencing homelessness, with a PMH of depression and tobacco abuse who presents to the emergency room with complaints of depression and suicidal ideation. The patient was admitted to the mental health unit where she was seen and evaluated. The patient reports that she has been experiencing foot pain over the past several weeks, most intense in the morning with the first few steps. She denied any additional complaints. Denied experiencing chest discomfort, shortness of breath, fever, chills, cough, nausea, vomiting, abdominal pain, diarrhea. Patient reports smoking 1 pack of cigarettes daily. Denied alcohol or substance use. Review of systems: Pertinent positives and negatives as discussed in HPI, a complete review of systems was performed and all other systems are negative. Physical examination: General: non toxic, no distress, appears at stated age, obese Derm: no unusual rashes/lesions, no unusual ecchymoses, warm, dry Head: atraumatic, normocephalic, symmetric Eyes: EOMI, no lid lag, anicteric sclera ENT: Nose and ears atraumatic, no thrush, no pharyngeal erythema Neck: trachea midline, supple Mouth: no lip lesion, mucus membranes moist Cardiovascular: S1S2 reg, no murmur, no edema Lungs: CTA bilateral, no rhonchi, no rales , no accessory muscle use Abdominal: soft, nontender to palpation, no guarding Ext: no gross muscle atrophy, no contractures, foot arch pain with point tenderness just anterior to the heel Neuro: No gross focal neuro deficits noted Psych: Alert, oriented, appropriate affect Assessment: Plantar fasciitis Tobacco abuse Depression and suicidal ideation Imaging: None performed Data Review: Laboratory evaluation reviewed with urine toxicology unremarkable Plan: Advised patient to avoid walking barefoot and to use shoes with good arch support Taught patient's multiple calf stretches Advised patient on importance of cessation from tobacco use Defer management of depression and suicidal ideation to primary psychiatry service Thank you for allowing us to participate in the care of this patient. We will follow peripherally. Do not hesitate to contact us with questions. Someone can be reached from the [facility] hospitalist group at all hours of the day at [phone]. Past Medical History Past Medical History: No Reported History History of Any Multi-Drug Resistant Organisms: None Reported Past Surgical History: No Surgical Hx Reported Past Anesthesia/Blood Transfusion Reactions: No Reported Reaction Smoking Status: Current every day smoker - Past Family History family Additional Family Medical History / Comment(s): denies CAD Medications and Allergies Home Medications Medication Instructions Recorded Confirmed Type ARIPiprazole [Abilify] 5 mg PO DAILY #30 tab 01/07/23 02/05/23 Rx DULoxetine HCL [Cymbalta] 60 mg PO BID #60 cap 01/07/23 02/05/23 Rx Famotidine [Pepcid] 20 mg PO BID #60 tab 01/07/23 02/05/23 Rx [place] Carbonate ER [Lithobid] 450 mg PO HS #30 tab 01/07/23 02/05/23 Rx hydroCHLOROthiazide [Hydrodiuril] 25 mg PO DAILY #30 tab 01/07/23 02/05/23 Rx Allergies Allergy/AdvReac Type Severity Reaction Status Date / Time No Known Allergies Allergy Verified 02/05/23 06:38 Physical Exam Vitals: Vital Signs Temp Pulse Pulse Resp BP BP Pulse Ox 02/05/23 05:41 97.8 F 82 18 137/76 95 02/05/23 01:02 98.4 F 92 18 159/96 98 Intake and Output 02/05/23 02/05/23 02/05/23 06:59 14:59 22:59 Other: Weight 101.7 kg
[2023-02-06] MEDS: ACETAMINOPHEN TAB 325 MG TAB PO PRN ×2 (09:07→20:37)
[2023-02-06] MEDS: NICOTINE 14MG/24HR PATCH TRANSDERM SCH (09:08)
[2023-02-06] MEDS: DULoxetine HCL 30 MG CAPSULE.DR PO SCH (09:08)
[2023-02-06 11:22] LABS: ALT 21 U/L (4-34); AST 20 U/L (14-36); African American GFR (CKD) >90 (>60 ml/min/1.73 sqM); Albumin 3.7 g/dL (3.5-5.0); Alkaline Phosphatase 102 U/L (38-126); Anion Gap 4 mmol/L; Blood Urea Nitrogen 9 mg/dL (7-17); Calcium 8.9 mg/dL (8.4-10.2); Carbon Dioxide 29 mmol/L (22-30); Chloride 104 mmol/L (98-107); Glucose 79 mg/dL (74-99); Non-African American GFR(CKD) 78 (>60 ml/min/1.73 sqM); Potassium 4.5 mmol/L (3.5-5.1); Sodium 137 mmol/L (137-145); Total Bilirubin 0.8 mg/dL (0.2-1.3); Total Protein 6.5 g/dL (6.3-8.2)
[2023-02-06 11:39] LABS: Basophils # (A) 0.1 k/uL (0-0.2); Basophils % (A) 1 %; Eosinophils # (A) 0.2 k/uL (0-0.7); Eosinophils % (A) 3 %; HCT 35.6 % (34.0-46.0); HGB 11.8 gm/dL (11.4-16.0); Lymphocytes # (A) 1.5 k/uL (1.0-4.8); Lymphocytes % (A) 27 %; MCHC 33.2 g/dL (31.0-37.0); MCV 84.5 fL (80.0-100.0); Mean Platelet Volume 7.2; Monocytes # (A) 0.3 k/uL (0-1.0); Monocytes % (A) 6 %; Neutrophils # (A) 3.2 k/uL (1.3-7.7); Neutrophils % (A) 59 %; Platelet Count 264 k/uL (150-450); RBC 4.22 m/uL (3.80-5.40); RDW 15.9 % (11.5-15.5); WBC 5.5 k/uL (3.8-10.6)
--- NOTE | 2023-02-06 14:33 | P.PN ---
Progress Note - Text Progress Note Date: 02/06/23 Interval History: Patient was seen bedside this AM. She is perseverative on "I just want to ". Patient is unable to discuss this thought further or discuss her mood. She says that she is awaiting to be discharged so that she can go onto the road and be hit by a vehicle. Patient again asks if physician-assisted suicide is possible. She reports her mood is "I'm in pain". She states that the pain is emotional and physical (leg pain). She reports adequate sleep and appetite. At this time patient denies any suicidal or homicidal ideations, intent or plan. Patient denies any auditory, visual hallucinations and denies any paranoia or delusions. Patient denies any side effects from the medications and has been compliant with meds. Mental Status Exam: General Appearance: Patient appears to be overweight, disheveled appearance, stated age is alert, guarded/evasive. Patient appears to have improved hygiene and grooming. Behavior: Patient is laying down without any agitated behavior. Speech: Patient's speech is fluent and nonpressured. Mood/Affect: Patient reports their mood is depressed, affect is congruent and constricted. Suicidality/Homicidality: Patient denies having any homicidal ideation intent or plan. Endorses suicidal ideation intent with a plan Perceptions: Patient denies any visual hallucinations and denies any auditory hallucinations Though content/process: [place], [id number] thinking. Focused on killing herself. Memory and concentration: AOX3, grossly intact for the purposes of this session Judgment and insight: poor Assessment Major depressive disorder, recurrent, severe, with psychotic features Adjustment disorder with depressed mood Plan: -Patient is admitted under voluntary status to MHU for stabilization of psychiatric symptoms and safety. Patient signed adult voluntary form and medication consent and is placed in patient's chart. -Medications : - Increase Cymbalta to 60 mg qAM and 30 mg qHS starting tomorrow - Start Abilify 5 mg daily -Patient was informed of the risks, benefits and side effects of the medication and patient verbally consented to taking the medications. Patient signed med consent form and was placed in chart. -Internal Medicine consult to perform medical evaluation and physical. -SW on board for discharge planning, including helping patient with potentially finding snf. Encourage patient to participate in groups to work on coping skills.
[2023-02-06] MEDS ORDERED: DULoxetine HCL 30 MG CAPSULE.DR PO SCH (21:00)
[2023-02-07] MEDS ORDERED: DULoxetine HCL 60 MG CAPSULE.DR PO SCH (09:00)
[2023-02-07] MEDS ORDERED: ARIPiprazole 5 MG TAB PO SCH (09:00)
[2023-02-07] MEDS: ACETAMINOPHEN TAB 325 MG TAB PO PRN ×2 (09:56→20:38)
[2023-02-07] MEDS: NICOTINE 14MG/24HR PATCH TRANSDERM SCH (09:56)
--- NOTE | 2023-02-07 12:10 | P.PN ---
Progress Note - Text Progress Note Date: 02/07/23 Interval History: Patient was seen resting in bed and was directable and agreeable to speak with bond underwriter in her room. Currently, the patient continues to endorse suicidal ideation and a desire to "just ." The patient has had multiple admissions on to the psychiatric unit for similar complaint. She has been nonadherent with any outpatient follow-up appointments. She expresses a desire to be brought to a state or country or suicide is legal. Despite this, the patient continues to address her hygiene and grooming, is reading comfortably in bed, and does not endorse any other symptoms of depression. She expresses that she is "done with life" as she is now currently homeless and that there is no answer to her current struggles. She is agreeable to starting lithium to address suicidal ideation. Mental Status Exam: General Appearance: Patient appears to be stated age is alert, directable, and cooperative. Behavior: Patient is calmly seated without any agitated behavior. Speech: Patient's speech is fluent and nonpressured. Mood/Affect: Mood is improving mildly, affect is congruent and constricted. Suicidality/Homicidality: Patient reports suicidal ideation. She denies any homicidal ideation. Perceptions: Patient denies any visual hallucinations and denies any auditory hallucinations Though content/process: There is no evidence of any delusional thought content and thought process is linear and goal-directed. Dysphoric. [place] helplessness. Memory and concentration: AOX3, grossly intact for the purposes of this session Judgment and insight: Poor Vital Signs Temp 97.8 F 02/07/23 06:28 Pulse 68 02/07/23 06:28 Resp 16 02/07/23 06:28 BP 132/64 02/07/23 06:28 Pulse Ox 99 02/07/23 06:28 FiO2 Intake & Output 02/06/23 02/07/23 02/07/23 18:59 06:59 18:59 Weight 100.8 kg Assessment Major depressive disorder, recurrent, severe Adjustment disorder with depressed mood Cluster B Personality Disorder Plan: -Patient continues to meet criteria for inpatient psychiatric admission for symptom stabilization and safety. Patient has signed adult voluntary form and medication consent and was placed in patient's chart. -Medications: To decrease Cymbalta to his 30 mg by mouth twice a day for depression Start lithium 450 mg by mouth at bedtime for suicidal ideation -When necessary Vistaril and Haldol for agitation/aggression. -SW on board for discharge planning. Encouraged the patient to participate in milieu.
[2023-02-07] MEDS: DULoxetine HCL 30 MG CAPSULE.DR PO SCH (20:38)
[2023-02-07] MEDS: LITHIUM CARBONATE ER 450 MG TABLET.ER PO SCH (20:38)
[2023-02-08] MEDS: DULoxetine HCL 30 MG CAPSULE.DR PO SCH ×2 (09:01→21:25)
[2023-02-08] MEDS: NICOTINE 14MG/24HR PATCH TRANSDERM SCH (09:01)
[2023-02-08] MEDS: ACETAMINOPHEN TAB 325 MG TAB PO PRN ×2 (09:02→21:26)
--- NOTE | 2023-02-08 11:17 | P.PN ---
Progress Note - Text Progress Note Date: 02/08/23 Interval History: Patient was seen resting in bed and was directable and agreeable to speak with writer producer in her room. Currently, the patient continues to endorse suicidal ideation and a desire to "just ." The patient continues to deny any significant desire for treatment. She is however adherent with the medications. The patient reports no significant symptoms of depression. She reports she is reading to pass the time. She denies any auditory or visual hallucinations. She reports no homicidal ideation. She is currently waiting for court as a demand has been filed due to nonadherence with any follow-up. The patient admits that she has not followed up with any consistent therapy, outpatient treatment, or outpatient services. Mental Status Exam: Grossly unchanged. General Appearance: Patient appears to be stated age is alert, directable, and cooperative. Behavior: Patient is calmly seated without any agitated behavior. Speech: Patient's speech is fluent and nonpressured. Mood/Affect: Mood is improving mildly, affect is congruent and euythmic. Nonchalant. Suicidality/Homicidality: Patient reports suicidal ideation. She denies any homicidal ideation. Perceptions: Patient denies any visual hallucinations and denies any auditory hallucinations Though content/process: There is no evidence of any delusional thought content and thought process is linear and goal-directed. Dysphoric. [place] helplessness. Memory and concentration: AOX3, grossly intact for the purposes of this session Judgment and insight: Poor Vital Signs Temp 97.6 F 02/08/23 06:41 Pulse 60 02/08/23 06:41 Resp 18 02/08/23 06:41 BP 146/84 02/08/23 06:41 Pulse Ox 97 02/08/23 06:41 FiO2 Assessment Major depressive disorder, recurrent, severe Adjustment disorder with depressed mood Cluster B Personality Disorder Plan: -Patient continues to meet criteria for inpatient psychiatric admission for symptom stabilization and safety. Demand for court has been filed. Court scheduled on 02-16-2023. -Medications: Continue Cymbalta 30 mg by mouth twice a day for depression Continue lithium 450 mg by mouth at bedtime for suicidal ideation -When necessary Vistaril and Haldol for agitation/aggression. -SW on board for discharge planning. Encouraged the patient to participate in milieu.
[2023-02-08] MEDS: LITHIUM CARBONATE ER 450 MG TABLET.ER PO SCH (21:25)
[2023-02-09] MEDS: NICOTINE 14MG/24HR PATCH TRANSDERM SCH (08:55)
[2023-02-09] MEDS: DULoxetine HCL 30 MG CAPSULE.DR PO SCH ×2 (08:55→21:28)
[2023-02-09] MEDS: ACETAMINOPHEN TAB 325 MG TAB PO PRN ×2 (08:56→18:14)
--- NOTE | 2023-02-09 11:26 | P.PN ---
Progress Note - Text Progress Note Date: 02/09/23 Interval History: Patient was seen resting in bed and was directable and agreeable to speak with service writer advisor in her room. Currently, the patient continues to endorse suicidal ideation and a plan to walk into traffic. A demand has been filed for a mental health court order as the patient is non adherent with her outpatient care. The patient reports no auditory or visual hallucinations. She reports no paranoia or other delusions. She has been adherent with her medications and reports a "weird feeling" as a side effect but is unable to define what it is. She states she just feels "a bit different." No medical issues or concerns endorsed. She denies any chest pain, palpitations, SOB, or light-headedness. Mental Status Exam: Grossly unchanged. General Appearance: Patient appears to be stated age is alert, directable, and cooperative. Behavior: Patient is calmly seated without any agitated behavior. Speech: Patient's speech is fluent and nonpressured. Mood/Affect: Mood is improving mildly, affect is congruent and euythmic. Nonchalant. Suicidality/Homicidality: Patient reports suicidal ideation. She denies any homicidal ideation. Perceptions: Patient denies any visual hallucinations and denies any auditory hallucinations Though content/process: There is no evidence of any delusional thought content and thought process is linear and goal-directed. Dysphoric. [place] helplessness. Memory and concentration: AOX3, grossly intact for the purposes of this session Judgment and insight: Poor Vital Signs Temp 97.4 F L 02/09/23 06:44 Pulse 69 02/09/23 06:44 Resp 14 02/09/23 06:44 BP 141/88 02/09/23 06:44 Pulse Ox 97 02/08/23 06:41 FiO2 Assessment Major depressive disorder, recurrent, severe Adjustment disorder with depressed mood Cluster B Personality Disorder Plan: -Patient continues to meet criteria for inpatient psychiatric admission for symptom stabilization and safety. Demand for court has been filed. Court scheduled on 02-16-2023. -Medications: Continue Cymbalta 30 mg by mouth twice a day for depression Continue lithium 450 mg by mouth at bedtime for suicidal ideation -When necessary Vistaril and Haldol for agitation/aggression. -SW on board for discharge planning. Encouraged the patient to participate in milieu.
[2023-02-09] MEDS: LITHIUM CARBONATE ER 450 MG TABLET.ER PO SCH (21:28)
[2023-02-10 06:48] VITALS: RESP 16
[2023-02-10] MEDS: DULoxetine HCL 30 MG CAPSULE.DR PO SCH ×2 (09:46→21:02)
[2023-02-10] MEDS: NICOTINE 14MG/24HR PATCH TRANSDERM SCH (09:46)
--- NOTE | 2023-02-10 11:32 | P.PN ---
Progress Note - Text Progress Note Date: 02/10/23 Interval History: Patient was seen resting in bed and was directable and agreeable to speak with appeals writer in her room. Currently she continues to endorse suicidal ideation with a plan to walk into traffic. She reports no symptoms of depression. She reports no auditory or visual hallucinations. She reports no paranoia or other delusions. She states she will "think about it" in regards to a waive and stipulation of mental health court. No reported issues regarding her sleep or appetite. She reports no issues regarding her hygiene and grooming. Mental Status Exam: Grossly unchanged. General Appearance: Patient appears to be stated age is alert, directable, and cooperative. Behavior: Patient is calmly seated without any agitated behavior. Speech: Patient's speech is fluent and nonpressured. Mood/Affect: Mood is improving mildly, affect is congruent and euythmic. N onchalant. Suicidality/Homicidality: Patient reports suicidal ideation. She denies any homicidal ideation. Perceptions: Patient denies any visual hallucinations and denies any auditory hallucinations Though content/process: There is no evidence of any delusional thought content and thought process is linear and goal-directed. Dysphoric. [place] helplessness. Memory and concentration: AOX3, grossly intact for the purposes of this session Judgment and insight: Poor Vital Signs Temp 97.4 F L 02/10/23 06:34 Pulse 66 02/10/23 06:34 Resp 16 02/10/23 06:34 BP 142/83 02/10/23 06:34 Pulse Ox 97 02/08/23 06:41 FiO2 Assessment Major depressive disorder, recurrent, severe Adjustment disorder with depressed mood Cluster B Personality Disorder Plan: -Patient continues to meet criteria for inpatient psychiatric admission for symptom stabilization and safety. Demand for court has been filed. Court scheduled on 02-16-2023. -Medications: Continue Cymbalta 30 mg by mouth twice a day for depression Continue lithium 450 mg by mouth at bedtime for suicidal ideation -When necessary Vistaril and Haldol for agitation/aggression. -SW on board for discharge planning. Encouraged the patient to participate in milieu.
[2023-02-10] MEDS: ACETAMINOPHEN TAB 325 MG TAB PO PRN (19:08)
[2023-02-10] MEDS: LITHIUM CARBONATE ER 450 MG TABLET.ER PO SCH (21:02)
[2023-02-11] MEDS: NICOTINE 14MG/24HR PATCH TRANSDERM SCH ×2 (09:10→09:11)
[2023-02-11] MEDS: DULoxetine HCL 30 MG CAPSULE.DR PO SCH ×2 (09:10→21:21)
[2023-02-11] MEDS: ACETAMINOPHEN TAB 325 MG TAB PO PRN ×2 (09:12→22:50)
--- NOTE | 2023-02-11 11:28 | P.PN ---
Progress Note - Text Progress Note Date: 02/11/23 Interval History: Patient was seen resting in bed and was directable and agreeable to speak with scientific writer in her room. Patient reports that she is not suicidal "as of this moment." She states she does have suicidal thoughts but is not experiencing any right now. She reports no homicidal ideation. She reports no auditory or visual hallucinations. She denies any paranoia or other delusions. She has been adherent with her medication and does not endorse any side effects. Mental Status Exam: Grossly unchanged. General Appearance: Patient appears to be stated age is alert, directable, and cooperative. Behavior: Patient is calmly seated without any agitated behavior. Speech: Patient's speech is fluent and nonpressured. Mood/Affect: Mood is "I feel fine." Affect is congruent and euythmic. Nonchalant. Suicidality/Homicidality: Patient denies any current suicidal or homicidal ideation. Perceptions: Patient denies any visual hallucinations and denies any auditory hallucinations Though content/process: There is no evidence of any delusional thought content and thought process is linear and goal-directed. Memory and concentration: AOX3, grossly intact for the purposes of this session Judgment and insight: Poor Vital Signs Temp 97.2 F L 02/11/23 06:26 Pulse 64 02/11/23 06:26 Resp 16 02/11/23 06:26 BP 130/75 02/11/23 06:26 Pulse Ox 98 02/11/23 06:26 FiO2 Assessment Major depressive disorder, recurrent, severe Adjustment disorder with depressed mood Cluster B Personality Disorder Plan: -Patient continues to meet criteria for inpatient psychiatric admission for symptom stabilization and safety. Demand for court has been filed. Court scheduled on 02-16-2023. Patient wishes to sign a waiver and stipulate court. -Medications: Continue Cymbalta 30 mg by mouth twice a day for depression Continue lithium 450 mg by mouth at bedtime for suicidal ideation -When necessary Vistaril and Haldol for agitation/aggression. -SW on board for discharge planning. Encouraged the patient to participate in milieu.
[2023-02-11] MEDS: LITHIUM CARBONATE ER 450 MG TABLET.ER PO SCH (21:21)
[2023-02-12] MEDS: DULoxetine HCL 30 MG CAPSULE.DR PO SCH ×2 (08:29→20:50)
[2023-02-12] MEDS: ACETAMINOPHEN TAB 325 MG TAB PO PRN ×2 (08:30→20:51)
[2023-02-12] MEDS: NICOTINE 14MG/24HR PATCH TRANSDERM SCH (08:33)
--- NOTE | 2023-02-12 11:13 | P.PN ---
Progress Note - Text Progress Note Date: 02/12/23 The patient was seen for follow-up Interval History: Patient was seen resting in bed and was directable and agreeable to speak with health technical writer in her room. Patient reports that she is not suicidal "as of this moment." She states she does have suicidal thoughts but is not experiencing any right now. She reports no homicidal ideation. She reports no auditory or visual hallucinations. She denies any paranoia or other delusions. She has been adherent with her medication and does not endorse any side effects. Patient reports that she's been homeless for the last 5 months and is not sure as to where she will go She says that the shelters are all full and that she is not this time is not eligible for any other place to stay He says that they are giving her a referral to follow-up with the local mental health services and that does not feel that that would be sufficient or solve all her problemsMental Status Exam: Grossly unchanged. General Appearance: Patient appears to be stated age is alert, directable, and cooperative. Behavior: Patient is calmly seated without any agitated behavior. Speech: Patient's speech is fluent and nonpressured. Mood/Affect: Mood is "I feel fine." Affect is congruent and euythmic. Nonchalant. Suicidality/Homicidality: Patient denies any current suicidal or homicidal ideation. Perceptions: Patient denies any visual hallucinations and denies any auditory hallucinations Though content/process: There is no evidence of any delusional thought content a nd thought process is linear and goal-directed. Memory and concentration: AOX3, grossly intact for the purposes of this session Judgment and insight: Fair Assessment Major depressive disorder, recurrent, severe Adjustment disorder with depressed mood Cluster B Personality Disorder Plan: -Patient continues to meet criteria for inpatient psychiatric admission for symptom stabilization and safety. Demand for court has been filed. Court scheduled on 02-16-2023. Patient wishes to sign a waiver and stipulate court. -Medications: Continue Cymbalta 30 mg by mouth twice a day for depression Continue lithium 450 mg by mouth at bedtime for suicidal ideation -When necessary Vistaril and Haldol for agitation/aggression. -SW on board for discharge planning. Encouraged the patient to participate in milieu. Patient appears to be an issue Justiceanita Morgan M.D.
[2023-02-12] MEDS: LITHIUM CARBONATE ER 450 MG TABLET.ER PO SCH (20:50)
[2023-02-13] MEDS: ACETAMINOPHEN TAB 325 MG TAB PO PRN ×2 (08:58→21:22)
[2023-02-13] MEDS: DULoxetine HCL 30 MG CAPSULE.DR PO SCH ×2 (08:58→21:22)
[2023-02-13] MEDS: NICOTINE 14MG/24HR PATCH TRANSDERM SCH (08:58)
--- NOTE | 2023-02-13 09:40 | P.PN ---
Progress Note - Text Progress Note Date: 02/13/23 The patient was seen for follow-up Interval History: Patient was sleeping comfortably but woke up with a startle Patient was seen resting in bed and was directable and agreeable to speak with designer writer in her room. Patient reports that she is not suicidal " " She states she does have suicidal thoughts but is not experiencing any right now. She reports no homicidal ideation. She reports no auditory or visual hallucinations . She denies any paranoia or other delusions. She has been adherent with her medication and does not endorse any side effects. Patient reports that she's been homeless for the last 5 months and is not sure as to where she will go Patient again expressed frustration over not having a place to go to He says that they are giving her a referral to follow-up with the local mental health services and that does not feel that that would be sufficient or solve all her problemsMental Status Exam: Grossly unchanged. General Appearance: Patient appears to be stated age is alert, directable, and cooperative. Behavior: Patient is calmly seated without any agitated behavior. Speech: Patient's speech is fluent and nonpressured. Mood/Affect: Mood is "I feel fine." Affect is congruent and euythmic. Nonchalant. Suicidality/Homicidality: Patient denies any current suicidal or homicidal ideation. Perceptions: Patient denies any visual hallucinations and denies any auditory hallucinations Though content/process: There is no evidence of any delusional thought content and thought process is linear and goal-directed. Memory and concentration: AOX3, grossly intact for the purposes of this session Judgment and insight: Fair Assessment Major depressive disorder, recurrent, severe Adjustment disorder with depressed mood Cluster B Personality Disorder Plan: -Patient continues to meet criteria for inpatient psychiatric admission for symptom stabilization and safety. Demand for court has been filed. Court scheduled on 02-16-2023. Patient wishes to sign a waiver and stipulate court. -Medications: Continue Cymbalta 30 mg by mouth twice a day for depression Continue lithium 450 mg by mouth at bedtime for suicidal ideation -When necessary Vistaril and Haldol for agitation/aggression. -SW on board for discharge planning. Encouraged the patient to participate in milieu. Patient appears to be an issue Justice Eddie Jose
[2023-02-13] MEDS: LITHIUM CARBONATE ER 450 MG TABLET.ER PO SCH (21:22)
[2023-02-14 01:27] VITALS: BP 166/98; PULSE 83; TEMP 97.8
[2023-02-14] MEDS: DULoxetine HCL 30 MG CAPSULE.DR PO SCH ×2 (09:15→21:05)
[2023-02-14] MEDS: NICOTINE 14MG/24HR PATCH TRANSDERM SCH (09:15)
[2023-02-14] MEDS: ACETAMINOPHEN TAB 325 MG TAB PO PRN ×2 (09:16→18:37)
--- NOTE | 2023-02-14 13:35 | P.PN ---
Progress Note - Text Progress Note Date: 02/14/23 Interval History: Patient was seen resting in bed and was directable and agreeable to speak with conventional mortgage underwriter in the office. Currently, the patient is not reporting any auditory or visual hallucinations. She is denying any paranoia or other delusions. She continues to endorse chronic suicidal ideation or overt does not endorse any intention or plan at this time. Patient is future and goal oriented and is desiring discharge. She reports her intention to sign a waiver and stipulate to a mental health court order. She denies any medical issues or concerns. She reports no chest pain, shortness of breath, palpitations, or any other concerns at this time. Mental Status Exam: Grossly unchanged. General Appearance: Patient appears to be stated age is alert, directable, and cooperative. Behavior: Patient is calmly seated without any agitated behavior. Speech: Patient's speech is fluent and nonpressured. Mood/Affect: Mood is "I feel fine." Affect is congruent and euythmic. Nonchalant. Suicidality/Homicidality: Patient denies any current suicidal or homicidal idea tion. Perceptions: Patient denies any visual hallucinations and denies any auditory hallucinations Though content/process: There is no evidence of any delusional thought content and thought process is linear and goal-directed. Memory and concentration: AOX3, grossly intact for the purposes of this session Judgment and insight: Poor Vital Signs Temp 97.8 F 02/14/23 01:24 Pulse 83 02/14/23 01:24 Resp 16 02/14/23 01:24 BP 166/98 02/14/23 01:24 Pulse Ox 98 02/14/23 01:24 FiO2 Intake & Output 02/13/23 02/14/23 02/14/23 18:59 06:59 18:59 Weight 97.9 kg Assessment Major depressive disorder, recurrent, severe Adjustment disorder with depressed mood Cluster B Personality Disorder Plan: -Patient continues to meet criteria for inpatient psychiatric admission for symptom stabilization and safety. Demand for court has been filed. Court scheduled on 02-16-2023. Patient wishes to sign a waiver and stipulate to court. -Medications: Continue Cymbalta 30 mg by mouth twice a day for depression Continue lithium 450 mg by mouth at bedtime for suicidal ideation -When necessary Vistaril and Haldol for agitation/aggression. -SW on board for discharge planning. Encouraged the patient to participate in milieu.
[2023-02-14] MEDS: LITHIUM CARBONATE ER 450 MG TABLET.ER PO SCH (21:05)
[2023-02-15] MEDS: NICOTINE 14MG/24HR PATCH TRANSDERM SCH (09:01)
[2023-02-15] MEDS: DULoxetine HCL 30 MG CAPSULE.DR PO SCH (09:02)
[2023-02-15] MEDS: ACETAMINOPHEN TAB 325 MG TAB PO PRN (09:02)
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
== END 2023-02-15 13:25 | disposition home or self-care (01) | DRG 751 ==
LOC: EC 00:47 → 3MHU 05:13
PROVIDERS: ADMIT Psychiatry & Neurology Psychiatry; ATTEND Psychiatry & Neurology Psychiatry
DX: F33.2 Major depressive disorder, recurrent severe without psychotic features (principal); F43.21 Adjustment disorder with depressed mood; F60.89 Other specific personality disorders; M72.2 Plantar fascial fibromatosis; R45.851 Suicidal ideations; F17.210 Nicotine dependence, cigarettes, uncomplicated; Z56.0 Unemployment, unspecified; Z59.00 Homelessness unspecified; Z76.5 Malingerer [conscious simulation]; Z79.899 Other long term (current) drug therapy; Z28.310 Unvaccinated for COVID-19; Z28.21 Immunization not carried out because of patient refusal; Z20.822 Contact with and (suspected) exposure to COVID-19
CPT/HCPCS: 80053; 80306; 81025; 82075; 85025; 87635

== ENCOUNTER 2023-03-07 07:20 | Inpatient (IN) | payer MEDICAID, OTHER ==
--- NOTE | 2023-03-07 07:54 | ED ---
General Adult HPI - General Chief complaint: Psychiatric Symptoms Stated complaint: mental health Time Seen by Provider: 03/07/23 07:29 Source: patient, police, RN notes reviewed Mode of arrival: ambulatory Limitations: no limitations - History of Present Illness Initial comments: Patient is a pleasant 47-year-old female presenting to the emergency department with concerns for mental health evaluation. Patient is brought in by police with petition. Patient omits to being depressed and having suicidal thoughts. Patient states she wishes she was . Patient is homeless. Patient has some decreased sleeping and eating which she attributes to being homeless. Patient does not have specific plan. No homicidal thoughts. No alcohol or street drug use. No new physical complaints. - Related Data Home Medications Medication Instructions Recorded Confirmed No Known Home Medications 03/07/23 03/07/23 Allergies Allergy/AdvReac Type Severity Reaction Status Date / Time No Known Allergies Allergy Verified 03/07/23 08:03 Review of Systems ROS Statement: Those systems with pertinent positive or pertinent negative responses have been documented in the HPI. ROS Other: All systems not noted in ROS Statement are negative. Constitutional: Denies: fever Eyes: Denies: eye pain ENT: Denies: ear pain Respiratory: Denies: cough Cardiovascular: Denies: chest pain Endocrine: Denies: fatigue Gastrointestinal: Denies: abdominal pain Genitourinary: Denies: dysuria Musculoskeletal: Denies: joint swelling Skin: Denies: rash Psychiatric: Reports: depression, suicidal thoughts Past Medical History Past Medical History: No Reported History History of Any Multi-Drug Resistant Organisms: None Reported Past Surgical History: No Surgical Hx Reported Past Anesthesia/Blood Transfusion Reactions: No Reported Reaction Past Psychological History: No Psychological Hx Reported Smoking Status: Current every day smoker Past Alcohol Use History: None Reported Past Drug Use History: None Reported - Past Family History family Additional Family Medical History / Comment(s): denies CAD General Exam Limitations: no limitations General appearance: alert, in no apparent distress Head exam: Present: normocephalic Eye exam: Present: other (Left pupil haziness, 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 Absent: tenderness Extremities exam: Present: normal inspection Neurological exam: Present: alert Psychiatric exam: Present: depressed, flat affect Skin exam: Present: normal color Course Vital Signs 03/07/23 07:25 Temperature 98.7 F Pulse Rate 75 Respiratory 20 Rate Blood Pressure 146/92 O2 Sat by Pulse 99 Oximetry Medical Decision Making - Medical Decision Making Was pt. sent in by a medical professional or institution (JOSÉ Lou, MEDICAL SERVICES MANAGER, urgent care, hospital, or [facility]...) When possible be specific @ -Patient was brought in by police on a pickup order Did you speak to anyone other than the patient for history (EMS, parent, family, police, friend...)? What history was obtained from this source @ -No Did you review nursing and triage notes (agree or disagree)? Why? @ -I reviewed and agree with nursing and triage notes Were old charts reviewed (outside hosp., previous admission, EMS record, old EKG, old radiological studies, urgent care reports/EKG's, [facility] records)? Report findings @ -No old charts were reviewed Differential Diagnosis (chest pain, altered mental status, abdominal pain women, abdominal pain men, vaginal bleeding, weakness, fever, dyspnea, syncope, headache, dizziness, GI bleed, back pain, seizure, CVA, palpatations, mental health)? @ -not applicable EKG interpreted by me (3pts min.). @ -As above X-rays interpreted by me (1pt min.). @ -None done CT interpreted by me (1pt min.). @ -None done U/S interpreted by me (1pt. min.). @ -None done What testing was considered but not performed or refused? (CT, X-rays, U/S, labs)? Why? @ -None What meds were considered but not given or refused? Why? @ -None Did you discuss the management of the patient with other professionals (professionals i.e. JOSÉ Lou, MEDICAL SERVICES MANAGER, lab, RT, psych nurse, social worker assistant, net sql developer, teacher, code enforcement officer, caser)? Give summary @ -Case was discussed with psychiatric nurse who does recommend admission. Was smoking cessation discussed for >3mins.? @ -No Was critical care preformed (if so, how long)? @ -No Were there social determinants of health that impacted care today? How? (Homelessness, low income, unemployed, alcoholism, drug addiction, transportation, low edu. Level, literacy, decrease access to med. care, longterm, rehab)? @ -No Was there de-escalation of care discussed even if they declined (Discuss DNR or withdrawal of care, Hospice)? DNR status @ -No What co-morbidities impacted this encounter? (DM, HTN, Smoking, COPD, CAD, Cancer, CVA, ARF, Chemo, Hep., AIDS, mental health diagnosis, sleep apnea, morbid obesity)? @ -None Was patient admitted / discharged? Hospital course, mention meds given and route, prescriptions, significant lab abnormalities, going to OR and other pertinent info. @ -Patient will be admitted to psychiatric services Undiagnosed new problem with uncertain prognosis? @ -No Drug Therapy requiring intensive monitoring for toxicity (Heparin, Nitro, Insulin, Cardizem)? @ -No Were any procedures done? @ -No Diagnosis/symptom? @ -Depression Acute, or Chronic, or Acute on Chronic? @ -Acute Uncomplicated (without systemic symptoms) or Complicated (systemic symptoms)? @ -default Side effects of treatment? @ -No Exacerbation, Progression, or Severe Exacerbation? @ -No Poses a threat to life or bodily function? How? (Chest pain, [place], [place], pneumonia, PE, COPD, DKA, ARF, appy, cholecystitis, CVA, Diverticulitis, Homicidal, Suicidal, threat to staff... and all critical care pts) @ -No Disposition Clinical Impression: Depression, Suicidal ideations Disposition: TRANSFER TO PSYCH HOSP/UNIT Is patient prescribed a controlled substance at d/c from ED?: No Referrals: None,Stated [Primary Care Provider] - 1-2 days Time of Disposition: 13:20
[2023-03-07] MEDS ORDERED: HALOPERIDOL LACTATE 5 MG/ML 1 ML VIAL IM PRN (16:06)
[2023-03-07] MEDS ORDERED: MAGNESIUM HYDROXIDE 2,400 MG/10 ML CUP PO PRN (16:06)
[2023-03-07] MEDS ORDERED: LORazepam 1 MG TAB PO PRN (16:06)
[2023-03-07] MEDS ORDERED: MAG HYDROX/AL HYDROX/SIMETH 30 ML CUP PO PRN (16:06)
[2023-03-07] MEDS ORDERED: haloperidoL 5 MG TAB PO PRN (16:09)
[2023-03-07] MEDS ORDERED: LORazepam 2 MG/ML INJ IM PRN (16:09)
[2023-03-07] MEDS: NICOTINE 14MG/24HR PATCH TRANSDERM SCH (18:15)
[2023-03-07 22:01] LABS: Amorphous Sediment,Urine Rare /hpf; Appearance,Urine Cloudy (Clear); Bacteria,Urine Rare /hpf; Bilirubin,Urine Negative (Negative); Blood,Urine Negative (Negative); Color,Urine Yellow; Glucose,Urine (UA) Negative (Negative); Ketones,Urine Negative (Negative); Leukocyte Esterase,Urine Negative (Negative); Mucus,Urine Rare /hpf; Nitrite,Urine Negative (Negative); PH, Urine 6.5 (5.0-8.0); Protein,Urine Negative (Negative); RBC,Urine <1 /hpf (0-5); Specific Gravity,Urine 1.011 (1.001-1.035); Squamous Epithelial Cell,Urine 9 /hpf (0-4); WBC,Urine 1 /hpf (0-5)
[2023-03-08 02:55] LABS: Urine Alcohol Negative (Negative); Urine Barbiturate Negative (Negative); Urine Cocaine Negative (Negative); Urine Methadone Negative (Negative); Urine Opiates Negative (Negative); Urine Phencyclidine Negative (Negative)
[2023-03-08] MEDS ORDERED: NICOTINE 14MG/24HR PATCH TRANSDERM SCH (09:00)
[2023-03-08] MEDS: NICOTINE 14MG/24HR PATCH TRANSDERM SCH (09:08)
[2023-03-08] MEDS: ACETAMINOPHEN TAB 325 MG TAB PO PRN ×2 (09:10→20:47)
--- NOTE | 2023-03-08 13:25 | P.HP ---
Psychiatric H&P - . H&P Date: 03/08/23 History & Physical: Allergies Allergy/AdvReac Type Severity Reaction Status Date / Time No Known Allergies Allergy Verified 03/07/23 08:03 Vital Signs Temp 96.5 F L 03/08/23 06:31 Pulse 73 03/08/23 06:31 Resp 18 03/08/23 06:31 BP 128/70 03/08/23 06:31 Pulse Ox 96 03/08/23 06:31 FiO2 Intake & Output 03/07/23 03/08/23 03/08/23 18:59 06:59 18:59 Weight 101.35 kg Laboratory Last Values Urine Color Yellow 03/07/23 20:55 Urine Appearance Cloudy (Clear) H 03/07/23 20:55 Urine pH 6.5 (5.0-8.0) 03/07/23 20:55 Ur Specific [place] 1.011 (1.001-1.035) 03/07/23 20:55 Urine Protein Negative (Negative) 03/07/23 20:55 Urine Glucose (UA) Negative (Negative) 03/07/23 20:55 Urine Ketones Negative (Negative) 03/07/23 20:55 Urine Blood Negative (Negative) 03/07/23 20:55 Urine Nitrite Negative (Negative) 03/07/23 20:55 Urine Bilirubin Negative (Negative) 03/07/23 20:55 Urine Urobilinogen 4.0 mg/dL (<2.0) 03/07/23 20:55 Ur Leukocyte Esterase Negative (Negative) 03/07/23 20:55 Urine RBC <1 /hpf (0-5) 03/07/23 20:55 Urine WBC 1 /hpf (0-5) 03/07/23 20:55 Ur Squamous Epith Cells 9 /hpf (0-4) H 03/07/23 20:55 Amorphous Sediment Rare /hpf (None) H 03/07/23 20:55 Urine Bacteria Rare /hpf (None) H 03/07/23 20:55 Urine Mucus Rare /hpf (None) H 03/07/23 20:55 Urine HCG, Qual Not Detected (Not Detectd) 03/07/23 20:55 Urine Opiates Screen Negative (Negative) 03/07/23 20:55 Urine Methadone Screen Negative (Negative) 03/07/23 20:55 Ur Propoxyphene Screen Negative (Negative) 03/07/23 20:55 Urine Barbiturates Negative (Negative) 03/07/23 20:55 Ur Phencyclidine Scrn Negative (Negative) 03/07/23 20:55 Ur Amphetamine Screen Negative (Negative) 03/07/23 20:55 U Benzodiazepines Scrn Negative (Negative) 03/07/23 20:55 Urine Cocaine Screen Negative (Negative) 03/07/23 20:55 U Cannabinoids Screen Negative (Negative) 03/07/23 20:55 Urine Alcohol Negative (Negative) 03/07/23 20:55 Coronavirus (PCR) Not Detected (Not Detectd) 03/07/23 13:45 03/08/23 13:25 IDENTIFYING DATA: Patient is a single, unemployed, homeless, 47-year-old female who presented to our hospital for suicidal ideation with attempt by walking into traffic. HPI: Patient presented to the hospital , brought in by police on 03/07/2023 after being found wandering on the road. Patient was witnessed by several individuals to be walking into traffic and making suicidal statements to police. She reported "I just want to . All I know is a need to ." The patient is currently on an order for mental health treatment however has been nonadherent with any outpatient follow-up. Patient states "I just don't see the point." She was subsequently admitted onto our psychiatric unit. The patient was last discharged from our psychiatric unit on 02/15/2023 however did not mixing picker tender any of her medications or follow up with any of her outpatient appointments. Upon evaluation on the psychiatric unit, the patient states only that she wishes to because she is "done with life." However, the patient is not endorsing any significant symptoms of depression. She reports no issues regarding her sleep or her appetite. She denies any anhedonia. She reports no issues regarding her hygiene and grooming aside from issues stemming from her homelessness. The patient does not endorse any auditory or visual hallucinations. She denies any paranoia or other delusions. She reports no recent drug use. PAST PSYCHIATRIC HISTORY: Patient has a history of major depressive disorder, cluster B personality disorder, homelessness, and has long been suspected for malingering. She was last discharged on a regimen of Cymbalta and lithium. She was also previously on a regimen of Abilify and Cymbalta however the patient is nonadherent with any prescribed medications. This is the patient's fourth inpatient psychiatric hospitalization since October 2022. She is nonadherent with outpatient follow up with [facility]. The patient has had numerous attempts at suicide by walking into traffic. PMH: Past Medical History: No Reported History History of Any Multi-Drug Resistant Organisms: None Reported Past Surgical History: No Surgical Hx Reported Past Anesthesia/Blood Transfusion Reactions: No Reported Reaction Past Psychological History: No Psychological Hx Reported Smoking Status: Current every day smoker Past Alcohol Use History: None Reported Past Drug Use History: None Reported ALLERGIES: NO KNOWN DRUG ALLERGIES CHEMICAL DEPENDENCY HISTORY: Patient denies any tobacco, alcohol, marijuana, or illicit drug use. FAMILY PSYCHIATRIC/SUBSTANCE USE HISTORY: denies SOCIAL HISTORY: Patient was born and raised in [place], [place]. She is currently homeless and unemployed. MENTAL STATUS EXAM: General Appearance: Patient appears to be stated age is alert, directable, and attempts to cooperate. Patient appears to have disheveled hygiene and grooming. Behavior: Patient is seated without any agitated behavior. Eye contact is appropriate Speech: Patient's speech is fluent and nonpressured. Mood/Affect: Patient reports their mood is "I just want to ," affect is incongruent, nonchalant, bright. Suicidality/Homicidality: Patient denies any homicidal ideation. She endorses suicidal ideation with plan to walk into traffic. Perceptions: Patient denies any visual hallucinations and denies any auditory hallucinations Though content/process: There is no evidence of any delusional thought content and thought process is linear and goal-directed. Memory and concentration: AOX3, grossly intact for the purposes of this session. Can spell "WORLD" backwards Judgment and insight: Poor STRENGTHS/WEAKNESSES: Strength is that the patient is resourceful. Weakness is that the patient is currently homeless INTELLECT: average IMPRESSIONS: Adjustment disorder with depressed mood Cluster B personality disorder Homelessness Rule out malingering PLAN: -Patient is admitted under involuntary status to MHU for stabilization of psychiatric symptoms and safety. Patient is currently ordered for treatment. -Medications : We will start patient on lithium in 450 mg by mouth twice a day for suicidal ideation We will start Prozac 30 mg by mouth daily for depression -Haldol IM when necessary for agitation/aggression -Patient was informed of the risks, benefits and side effects of the medication and patient verbally consented to taking the medications. -Internal Medicine consult to perform medical evaluation and physical. -SW on board for discharge planning. Encourage patient to participate in groups to work on coping skills. 03/08/23 13:25
[2023-03-08] MEDS: LITHIUM CARBONATE 150 MG CAP PO SCH (20:44)
--- NOTE | 2023-03-09 02:02 | P.PN ---
Progress Note - Text Progress Note Date: 03/08/23 patient refused the interview at this time
[2023-03-09 06:56] VITALS: BP 167/93; PULSE 59; RESP 16; TEMP 97
[2023-03-09] MEDS: NICOTINE 14MG/24HR PATCH TRANSDERM SCH (08:24)
[2023-03-09] MEDS: LITHIUM CARBONATE 150 MG CAP PO SCH (08:24)
[2023-03-09] MEDS ORDERED: FLUoxetine HCL 10 MG CAP PO SCH (09:00)
--- NOTE | 2023-03-09 11:44 | P.DS ---
Providers Date of admission: 03/07/23 16:03 Expected date of discharge: 03/09/23 Attending physician: Rod Whitman MD Consults: 03/07/23 16:06 Consult Physician Routine Consulting Provider: Tammie Vincent Consult Reason/Comments: H&P and medical Do you want consulting provider notified?: Yes Primary care physician: Stated None - Discharge Diagnosis(es) (1) Adjustment disorder with depressed mood Current Visit: Yes Status: Acute Priority: High (2) Malingering Current Visit: Yes Status: Acute Priority: High (3) Cluster B personality disorder Current Visit: Yes Status: Chronic Priority: Medium (4) Homelessness Current Visit: Yes Status: Chronic Priority: High Hospital Course: Admission HPI: Patient is a single, unemployed, homeless, 47-year-old female who presented to our hospital for suicidal ideation with attempt by walking into traffic. Patient presented to the hospital , brought in by police on 03/07/2023 after being found wandering on the road. Patient was witnessed by several individuals to be walking into traffic and making suicidal statements to police. She reported "I just want to . All I know is a need to ." The patient is currently on an order for mental health treatment however has been nonadherent with any outpatient follow-up. Patient states "I just don't see the point." She was subsequently admitted onto our psychiatric unit. The patient was last discharged from our psychiatric unit on 02/15/2023 however did not scrap picker any of her medications or follow up with any of her outpatient appointments. Upon evaluation on the psychiatric unit, the patient states only that she wishes to because she is "done with life." However, the patient is not endorsing any significant symptoms of depression. She reports no issues regarding her sleep or her appetite. She denies any anhedonia. She reports no issues regarding her hygiene and grooming aside from issues stemming from her homelessness. The patient does not endorse any auditory or visual hallucinations. She denies any paranoia or other delusions. She reports no recent drug use. Patient has a history of major depressive disorder, cluster B personality disorder, homelessness, and has long been suspected for malingering. She was last discharged on a regimen of Cymbalta and lithium. She was also previously on a regimen of Abilify and Cymbalta however the patient is nonadherent with any prescribed medications. This is the patient's fourth inpatient psychiatric hospitalization since October 2022. She is nonadherent with outpatient follow up with [facility]. The patient has had numerous attempts at suicide by walking into traffic. Hospital course: Upon admission to the unit patient was initially expressing suicidal ideation with a plan to walk into traffic however was not presenting with any significant symptoms of depression. She was started on a regimen of Prozac and lithium to address depression and suicidal ideation. This patient is familiar to our service and the patient is known for trying to obtain secondary gain. She has not engaged in any outpatient treatment and refuses to follow up with any outpatient appointments despite being provided with transportation and help. Patient states to this treatment team that "I do not want to go to [place], they'll kill me there." This is counter to what she is endorsing as suicidal ideation. The patient expresses that she does not want to be in the inpatient psychiatric unit and expresses her annoyance for being admitted. However, attempts to reason with the patient in regards to her actively engaging in services and resources in the outpatient setting is met with futility as the patient states that there is no point. She expresses she would like to leave as she is not getting any pain management here either. As the patient is likely here for secondary gain and is currently not presenting with imminent risk of harm to self or others, she is subsequently discharged. The patient was provided with appropriate safety planning and resources. Mental status exam: General Appearance: Patient appears to be stated age is alert, irritable but cooperative. Patient is in no acute distress and has fair hygiene and grooming Behavior: Patient is calmly seated without any agitated behavior. Speech: Patient's speech is fluent and nonpressured. Mood/Affect: Patient reports their mood is "I'm ready to leave. I'm just so annoyed being in here because of the other patients." Affect is irritable and demanding. Suicidality/Homicidality: Patient endorses chronic suicidal ideation. No homicidal ideation. Perceptions: Patient denies any auditory or visual hallucinations. Though content/process: There is no evidence of any delusional thought content and thought process is linear and goal-directed. Obstinate. Rigid. Memory and concentration: AOX3, grossly intact for the purposes of this session. Can spell "WORLD" backwards correctly. Judgment and insight: Poor at baseline. Guarded. Impression: Malingering Cluster B personality disorder including narcissism and borderline personality disorder Homelessness Adjustment disorder with depressed mood Plan: -Continue with discharge today as patient has improved and stabilized psychiatrically and is not currently an imminent threat to herself and/or others. She is always at chronic risk however has a lack of severe suicide attempts and is obstinate in following outpatient treatment recommendations. Suspect narcissim and malingering behaviors. -Continue medications: [place] 450 mg twice a day for suicidal ideation Prozac 30 mg daily for depression -Patient was counseled on the need for medication compliance and appropriate follow-up at mental health and also primary care for medical issues. Patient verbalized understanding and agreed. -Social work to arrange for and conduct family meeting to ensure safety upon discharge and answer any questions/concerns. Social work also to arrange for patients follow up appointments with [facility] for psychiatric care along with follow up with primary care provider. -Patient counseled on abstaining from recreational drugs and marijuana and alcohol. Was informed/educated on the adverse effects on their physical and mental health. Patient verbally agreed and understood. Patient was offered substance abuse treatment however declined at this time. -Patient was instructed to return to the hospital or seek immediate medical care if their psychiatric or medical symptoms do worsen or reoccur. -Psychoeducation and supportive therapy provided to patient. Risks and benefits of pharmacological treatment versus the risks and benefits of nontreatment weight and discussed. Informed consent discussion held. Common side effects of psychotropics discussed such as, but not limited to headache, GI disturbance, sexual dysfunction, movement disorders, sedation, and orthostatic hypotension. Life threatening and blackbox warnings of prescribed medications also discussed. Potential risks of operating a vehicle or heavy machinery discussed with patient at length. Advised on importance of compliance and a reliable and responsible manner. Patient advised to review FDA consumer labeling of all medications prior to taking. Patient verbalized understanding of potential risks, and agrees with current treatment plan. Patient advised to medically c ontact physician/emergency personnel if any acute changes in condition occur. Vital Signs Temp 97 F L 03/09/23 06:33 Pulse 59 L 03/09/23 06:33 Resp 16 03/09/23 06:33 BP 167/93 03/09/23 06:33 Pulse Ox 96 03/08/23 06:31 FiO2 Laboratory Results Urine Color Yellow 03/07/23 20:55 Urine Appearance Cloudy (Clear) H 03/07/23 20:55 Urine pH 6.5 (5.0-8.0) 03/07/23 20:55 Ur Specific [place] 1.011 (1.001-1.035) 03/07/23 20:55 Urine Protein Negative (Negative) 03/07/23 20:55 Urine Glucose (UA) Negative (Negative) 03/07/23 20:55 Urine Ketones Negative (Negative) 03/07/23 20:55 Urine Blood Negative (Negative) 03/07/23 20:55 Urine Nitrite Negative (Negative) 03/07/23 20:55 Urine Bilirubin Negative (Negative) 03/07/23 20:55 Urine Urobilinogen 4.0 mg/dL (<2.0) 03/07/23 20:55 Ur Leukocyte Esterase Negative (Negative) 03/07/23 20:55 Urine RBC <1 /hpf (0-5) 03/07/23 20:55 Urine WBC 1 /hpf (0-5) 03/07/23 20:55 Ur Squamous Epith Cells 9 /hpf (0-4) H 03/07/23 20:55 Amorphous Sediment Rare /hpf (None) H 03/07/23 20:55 Urine Bacteria Rare /hpf (None) H 03/07/23 20:55 Urine Mucus Rare /hpf (None) H 03/07/23 20:55 Urine HCG, Qual Not Detected (Not Detectd) 03/07/23 20:55 Urine Opiates Screen Negative (Negative) 03/07/23 20:55 Urine Methadone Screen Negative (Negative) 03/07/23 20:55 Ur Propoxyphene Screen Negative (Negative) 03/07/23 20:55 Urine Barbiturates Negative (Negative) 03/07/23 20:55 Ur Phencyclidine Scrn Negative (Negative) 03/07/23 20:55 Ur Amphetamine Screen Negative (Negative) 03/07/23 20:55 U Benzodiazepines Scrn Negative (Negative) 03/07/23 20:55 Urine Cocaine Screen Negative (Negative) 03/07/23 20:55 U Cannabinoids Screen Negative (Negative) 03/07/23 20:55 Urine Alcohol Negative (Negative) 03/07/23 20:55 Coronavirus (PCR) Not Detected (Not Detectd) 03/07/23 13:45 Allergies Allergy/AdvReac Type Severity Reaction Status Date / Time No Known Allergies Allergy Verified 03/07/23 08:03 Patient Condition at Discharge: Stable Plan - Discharge Summary Discharge Rx Participant: No New Discharge Prescriptions: New [place] Carbonate [[place] Carbonate ER] 450 mg PO BID 30 Days #60 tab FLUoxetine HCL [PROzac] 30 mg PO DAILY 30 Days #90 cap Discharge Medication List FLUoxetine HCL [PROzac] 30 mg PO DAILY 30 Days #90 cap 03/09/23 [Rx] [place] Carbonate [[place] Carbonate ER] 450 mg PO BID 30 Days #60 tab 03/09/23 [Rx] Follow up Appointment(s)/Referral(s): [facility] [Outside] - 03/14/23 10:00 am (03/14/2023 10:00AM - 11:00AM RAFAEL MILA 03/17/2023 8:30AM - 9:30AM CHRISTIE ROGER) [facility] [NON-STAFF] - 1 Week Patient Instructions/Handouts: How to Stop Smoking (DC), Depression (DC) Activity/Diet/Wound Care/Special Instructions: Avoid the use of street drugs and alcohol. Take all medications as prescribed. When you are in need of refills on your medications, please contact your medical provider and/or outpatient psychiatrist to have this done. Please go to scheduled outpatient appointments for aftercare treatment. If symptoms return or become worse, call the crisis line at and/or go to the nearest emergency room for evaluation. Discharge Disposition: HOME SELF-CARE
== END 2023-03-09 13:08 | disposition home or self-care (01) | DRG 754 ==
LOC: EC 07:20 → 3MHU 16:03
PROVIDERS: ADMIT Psychiatry & Neurology Psychiatry; ATTEND Psychiatry & Neurology Psychiatry
DX: F43.21 Adjustment disorder with depressed mood (principal); F60.89 Other specific personality disorders; F60.3 Borderline personality disorder; F60.81 Narcissistic personality disorder; F17.210 Nicotine dependence, cigarettes, uncomplicated; R45.851 Suicidal ideations; Z56.0 Unemployment, unspecified; Z59.00 Homelessness unspecified; Z76.5 Malingerer [conscious simulation]; Z79.899 Other long term (current) drug therapy; Z53.29 Procedure and treatment not carried out because of patient's decision for other reasons
CPT/HCPCS: 80306; 81001; 81025; 82075; 87635; 99285